=== PATIENT | female | born 1955 | race Caucasian/White ===

== ENCOUNTER 2020-07-28 07:47 | Outpatient (REF) | payer OTHER, SELFPAY ==
[2020-07-28 08:14] LABS: COVID-19 Test Negative (Negative)
== END 2020-07-28 07:48 | disposition home or self-care (01) ==
LOC: HO.EMPCOV 07:47
PROVIDERS: Visit Provider Internal Medicine
DX: Z20.828 Contact with and (suspected) exposure to other viral communicable diseases (principal)
CPT/HCPCS: 87635; C9803

== ENCOUNTER 2020-11-11 11:49 | Emergency (ER) | payer OTHER, SELFPAY ==
[2020-11-11 11:52] VITALS: BP 196/89; PULSE 82; RESP 18; TEMP 36.5; O2SAT 99; BMI 31.8
--- NOTE | 2020-11-11 13:21 | ECG_ITS ---
Test Reason : HIGH BP Blood Pressure : / mmHG Vent. Rate : 064 BPM Atrial Rate : 064 BPM P-R Int : 148 ms QRS Dur : 088 ms QT Int : 412 ms P-R-T Axes : 030 -03 009 degrees QTc Int : 425 ms Normal sinus rhythm Minimal voltage criteria for LVH, may be normal variant Borderline ECG When compared with ECG of 05-AUG-2012 07:53, No significant change was found Referred By: Prabha Lawson Electronically Signed By:ROSENDO RUBY MD
[2020-11-11 13:34] VITALS: BP 170/83; PULSE 64
[2020-11-11 13:37] VITALS: BP 177/90; PULSE 68
[2020-11-11 13:38] VITALS: BP 176/85; PULSE 73
[2020-11-11] MEDS: Meclizine HCl 25 MG TABLET PO (13:49)
[2020-11-11 13:52] LABS: MANUAL DIFF FLAG NO
[2020-11-11 13:54] LABS: Basophils Percent Auto 0.6 % (0-2); Eosinophils Absolute Auto 0.2 X10*3/uL (0.0-0.4); Eosinophils Percent Auto 2.5 % (0-4); Hematocrit 39.7 % (37-47); Hemoglobin 13.2 g/dl (12.0-16.0); Imm Gran Abs Auto 0.02 X10*3/uL (0.00-0.03); Imm Gran Pct Auto 0.3 % (0.0-0.4); Lymphocytes Percent Auto 28.7 % (20-40); Mean Corpuscular HGB Conc 33.2 g/dl (31.0-35.0); Mean Corpuscular Hemoglobin 29.7 pg (27.0-33.0); Mean Corpuscular Volume 89.4 fL (80-98); Mean Platelet Volume 8.9 fL (9.4-12.3); Monocytes Absolute Auto 0.6 X10*3/uL (0.1-1.2); Monocytes Percent Auto 8.1 % (2-11); Neutrophils Absolute Auto 4.1 X10*3/uL (2.0-8.3); Neutrophils Percent Auto 59.8 % (45-73); Platelet Count 222 X10*3/uL (160-400); Red Blood Count 4.44 X10*6/uL (4.20-5.50); Red Cell Distribution Width 12.3 % (11.0-16.0); White Blood Count 6.8 X10*3/uL (4.8-10.8)
[2020-11-11 13:56] LABS: Glucose Urine UA NEG (NEG); Leukocyte Esterase Urine NEG (NEG); Nitrite Urine NEG (NEG); PH 5.5 (5.0-8.0); Urine Blood TRACE (NEG); Urine Ketones NEG (NEG); Urine Protein NEG (NEG-TRACE)
[2020-11-11 14:03] LABS: Appearance Urine CLEAR; Color Urine YELLOW
[2020-11-11] MEDS: 0.9 % Sodium Chloride 1,000 ML 999 ML IVCONT (14:03)
[2020-11-11] MEDS: ondansetron HCL 4 MG/2 ML VIAL IVPUSH (14:03)
[2020-11-11 14:10] LABS: RBC Urine 0-2 /HPF (0); Squamous Epithelial Cell Urine TRACE /LPF; WBC Urine 0-2 /HPF (0-4)
[2020-11-11 14:22] LABS: Alanine Aminotransferase 46 U/L (0-31); Albumin Level 4.2 g/dL (3.5-5.0); Alkaline Phosphatase 49 U/L (39-117); Anion Gap 9 (12-20); Aspartate Amino Transferase 25 U/L (5-31); Bilirubin Direct 0.2 mg/dL (0.0-0.5); Bilirubin Total 0.7 mg/dL (0.0-1.0); Blood Urea Nitrogen 12 mg/dL (9-16); Calcium 9.1 mg/dL (8.4-10.2); Carbon Dioxide 30 mmol/L (22-29); Chloride 105 mmol/L (96-108); Creatinine Clr Calc Pharmacy 79.4; Estimated Glomerular Filt Rate > 60; Glucose Random 92 mg/dL (60-115); Magnesium 1.7 mg/dL (1.6-2.6); Potassium 4.1 mmol/L (3.3-5.1); Sodium 140 mmol/L (135-145); Total Protein 6.4 g/dL (6.5-8.0); Troponin-I High Sensitivity < 3.5 ng/L (<3.5-17.0)
[2020-11-11 14:34] VITALS: BP 173/82; PULSE 66; RESP 16; O2SAT 99
[2020-11-11 14:41] LABS: TSH reflex Free T4 1.35 uIU/mL (0.32-4.0)
[2020-11-11] MEDS: LORazepam 2 MG/ML VIAL 1 MG IVPUSH (14:47)
--- NOTE | 2020-11-11 15:22 | ED_ITS ---
HPI - Dizziness General Chief Complaint: Dizziness Stated Complaint: dizzy,high blood pressure Time Seen by Provider: 11/11/20 13:07 Source: patient Mode of arrival: ambulatory History of Present Illness HPI Narrative: 65-year-old female with no significant past medical history presenting to the ED complaining of intermittent dizziness described as feeling like she is on a boat/not herself over the past week, worsening today with associated palpitations, headache, and increased anxiety/stress from work/daily life. 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 Denies vision change/lost, nausea/vomiting, CP/SOB, abdominal pain, LE edema, numbness, tingling, weakness, paresthesias. Denies taking anticoagulation MD elicited complaint: dizziness and disequilibrium Related Data Previous Rx's Medication Instructions Recorded lorazepam [Ativan] 0.5 mg PO TID PRN #10 tab 11/11/20 meclizine 25 mg PO TID PRN #20 tab 11/11/20 Allergies Allergy/AdvReac Type Severity Reaction Status Date / Time No Known Allergies Allergy Unverified 05/13/20 16:14 Review of Systems Review of Systems: Constitutional: No Fever, No Chills, No Fatigue, No Malaise ENT/Mouth: No Hearing loss, No Ear Pain, No sore throat, No Rhinorrhea, No Swallowing Difficulty Eyes: No Eye Pain, No Vision Changes Cardiovascular: No Chest Pain, No SOB, No Edema, + Palpitations Respiratory: No Cough, No Dyspnea Gastrointestinal: No Nausea, No Vomiting, No Diarrhea, No Constipation, No Abdominal pain Musculoskeletal: No joint pain, No Myalgias, No Joint Swelling Skin: No Skin Lesions, No rash Neuro: No Weakness, No Numbness, No Paresthesias, No Loss of Consciousness, + Dizziness, + Headache Yes all other systems are reviewed and are negative Neurologic: Denies Abnormal speech present [facility] Past Medical History Attestation statement: The following information was validated with the patient. Social History Social History Advance Directives: No Advance Directives Information Provided: No Physical Exam Vital Signs: Vital Signs: Last Vital Signs Temp 97.7 F 11/11/20 11:52 Pulse 66 11/11/20 14:34 Resp 16 11/11/20 14:34 BP 173/82 H 11/11/20 14:34 Pulse Ox 99 03/18/21 14:34 Body Mass Index 31.8 Const: General: cooperative, healthy appearing, comfortable, no acute distress, well developed, alert, awake and Physically active Orien tation/consciousness: patient oriented x3 Limitations: no limitations HENMT: Head: Yes normal to inspection and Yes atraumatic Ears: hearing grossly normal bilaterally General nose exam: Normal external nose present Face and sinus: Yes normal facial exam Eyes: General: appearance normal, both eyes and all related structures Pupils: Equal, round and reactive pupils present EOM: EOMs intact bilaterally Neck: Neck: Yes normal visual inspection and Yes no meningeal signs Resp: Effort & Inspection: normal respiratory effort Cardio: Rate: regular rate GI: Inspection: Yes normal to inspection Palpation (GI): Soft to palpation, nontender, no guarding and not rigid Skin: Rashes: no rashes Wounds: no wounds Neuro: Other: + left-sided horizontal nystagmus General: patient oriented x3, gait normal, tone normal, moves all extremities, no meningeal signs, no focal motor deficits and CN's II-XI intact bilaterally Cranial nerves: Yes Equal, round and reactive pupils present and Yes Bilaterally intact EOM present Cognition (Neuro): normal cognition Speech: No Abnormal speech present Gait exam (Neuro): Normal gait present Motor exam (neuro): 5/5 motor strength present throughout and Pronator motor function not present Coordination: [id number] test normal and Romberg test negative Extrem: General: Yes normal to inspection and Yes no pedal edema Course Course Course Narrative: -patient refusing head CT due to fear of claustrophobia/does not believe it is necessary. Risks discussed, she is competent to make her own decisions -ALT mildly elevated, labs otherwise unremarkable, troponin negative, TSH WNL, UA negative -orthostatic vital signs negative -1530--On re-evaluation patient reports symptomatic improvement, blood pressure has improved to 150s / 80s, once again I requested she obtain head CT which patient is adamantly refusing, this was discussed with Dr. Miranda who also talked to patient. Patient believes symptoms due to increased stress/anxiety. Worrisome signs and symptoms and strict return precautions discussed. Plan to DC patient home with meclizine and Ativan and close PCP/neurology follow-up MDM - Dizziness MDM Narrative Medical decision making narrative: 65-year-old female with no significant past medical history presenting to the ED complaining of intermittent dizziness described as feeling like she is on a boat/not herself over the past week, worsening today with associated palpitations, headache, and increased anxiety/stress from work/daily life. On exam hypertensive, NAD/nontoxic, no focal neuro deficits, left-sided nystagmus noted, ambulating with steady gait. Concern for BPPV vs anxiety reaction vs hypertensive urgency/emergency vs CVA or ICH. Rule out metabolic/infectious etiology. Unlikely meningitis/encephalitis or CVT Plan: EKG, labs, UA, head CT, IVF/symptomatic treatment Medical Records Attestation: I reviewed the patient's medical records. Lab Data Attestation: I reviewed the patient's lab results. Result diagrams: 11/11/20 13:44 11/11/20 13:44 Labs: Lab Results 11/11/20 11/11/20 11/11/20 Range/Units 13:44 13:44 13:44 WBC 6.8 (4.8-10.8) X10*3/uL RBC 4.44 (4.20-5.50) X10*6/uL Hgb 13.2 (12.0-16.0) g/dl Hct 39.7 (37-47) % MCV 89.4 (80-98) fL MCH 29.7 (27.0-33.0) pg MCHC 33.2 (31.0-35.0) g/dl RDW 12.3 (11.0-16.0) % Plt Count 222 (160-400) X10*3/uL MPV 8.9 L (9.4-12.3) fL Immature Gran % (Auto) 0.3 (0.0-0.4) % Neut % (Auto) 59.8 (45-73) % Lymph % (Auto) 28.7 (20-40) % Ross % (Auto) 8.1 (2-11) % Eos % (Auto) 2.5 (0-4) % Baso % (Auto) 0.6 (0-2) % Lymph # (Auto) 2.0 (1.2-4.9) X10*3/uL Ross # (Auto) 0.6 (0.1-1.2) X10*3/uL Eos # (Auto) 0.2 (0.0-0.4) X10*3/uL Baso # (Auto) 0.0 (0.0-0.2) X10*3/uL Abs Immat Gran (auto) 0.02 (0.00-0.03) X10*3/uL Absolute Neuts (auto) 4.1 (2.0-8.3) X10*3/uL Absolute Nucleated RBC 0.000 (0.0-0.012) X10*3/uL Nucleated RBC % (auto) 0.0 (0.0-0.2) /100WBC Hold Blue Top Sodium 140 (135-145) mmol/L Potassium 4.1 (3.3-5.1) mmol/L Chloride 105 (96-108) mmol/L Carbon Dioxide 30 H (22-29) mmol/L Anion Gap 9 L (12-20) BUN 12 (9-16) mg/dL Creatinine 0.75 (0.5-1.4) mg/dL Estim Creat Clear Calc 79.4 Estimated GFR > 60 Random Glucose 92 (60-115) mg/dL Calcium 9.1 (8.4-10.2) mg/dL Magnesium 1.7 (1.6-2.6) mg/dL Total Bilirubin 0.7 (0.0-1.0) mg/dL Direct Bilirubin 0.2 (0.0-0.5) mg/dL AST 25 (5-31) U/L ALT 46 H (0-31) U/L Alkaline Phosphatase 49 (39-117) U/L Troponin I High Sens < 3.5 (<3.5-17.0) ng/L Total Protein 6.4 L (6.5-8.0) g/dL Albumin 4.2 (3.5-5.0) g/dL TSH 1.35 (0.32-4.0) uIU/mL Urine Color Urine Appearance Urine pH (5.0-8.0) Ur Specific Elmer (1.005-1.025) Urine Protein (NEG-TRACE) MG/DL Urine Glucose (UA) (NEG) MG/DL Urine Ketones (NEG) MG/DL Urine Blood (NEG) Urine Nitrite (NEG) Ur Leukocyte Esterase (NEG) Urine RBC (0) /HPF Urine WBC (0-4) /HPF Ur Squamous Epith Cells /LPF Urine Bacteria /LPF 11/11/20 11/11/20 Range/Units 13:44 13:44 WBC (4.8-10.8) X10*3/uL RBC (4.20-5.50) X10*6/uL Hgb (12.0-16.0) g/dl Hct (37-47) % MCV (80-98) fL MCH (27.0-33.0) pg MCHC (31.0-35.0) g/dl RDW (11.0-16.0) % Plt Count (160-400) X10*3/uL MPV (9.4-12.3) fL Immature Gran % (Auto) (0.0-0.4) % Neut % (Auto) (45-73) % Lymph % (Auto) (20-40) % Ross % (Auto) (2-11) % Eos % (Auto) (0-4) % Baso % (Auto) (0-2) % Lymph # (Auto) (1.2-4.9) X10*3/uL Ross # (Auto) (0.1-1.2) X10*3/uL Eos # (Auto) (0.0-0.4) X10*3/uL Baso # (Auto) (0.0-0.2) X10*3/uL Abs Immat Gran (auto) (0.00-0.03) X10*3/uL Absolute Neuts (auto) (2.0-8.3) X10*3/uL Absolute Nucleated RBC (0.0-0.012) X10*3/uL Nucleated RBC % (auto) (0.0-0.2) /100WBC Hold Blue Top SEE NOTE Sodium (135-145) mmol/L Potassium (3.3-5.1) mmol/L Chloride (96-108) mmol/L Carbon Dioxide (22-29) mmol/L Anion Gap (12-20) BUN (9-16) mg/dL Creatinine (0.5-1.4) mg/dL Estim Creat Clear Calc Estimated GFR Random Glucose (60-115) mg/dL Calcium (8.4-10.2) mg/dL Magnesium (1.6-2.6) mg/dL Total Bilirubin (0.0-1.0) mg/dL Direct Bilirubin (0.0-0.5) mg/dL AST (5-31) U/L ALT (0-31) U/L Alkaline Phosphatase (39-117) U/L Troponin I High Sens (<3.5-17.0) ng/L Total Protein (6.5-8.0) g/dL Albumin (3.5-5.0) g/dL TSH (0.32-4.0) uIU/mL Urine Color YELLOW Urine Appearance CLEAR Urine pH 5.5 (5.0-8.0) Ur Specific Elmer 1.020 (1.005-1.025) Urine Protein NEG (NEG-TRACE) MG/DL Urine Glucose (UA) NEG (NEG) MG/DL Urine Ketones NEG (NEG) MG/DL Urine Blood TRACE (NEG) Urine Nitrite NEG (NEG) Ur Leukocyte Esterase NEG (NEG) Urine RBC 0-2 (0) /HPF Urine WBC 0-2 (0-4) /HPF Ur Squamous Epith Cells TRACE /LPF Urine Bacteria NONE /LPF Discharge Plan Discharge Clinical Impression: Dizziness Patient Disposition: Home, Self-Care Instructions: Dizziness (ED) Additional Instructions: Your blood work was reassuring today in the ED. however you refused a head CT, it is still possible that you could have had or be having a stroke Meclizine will help with nausea and dizziness. Ativan will help with anxiety, take both as prescribed/as needed It is very important that he follow up with her primary care doctor as well as neurology If her symptoms persist or worsen, you have constant worsening headache, dizziness, any visual change/loss, weakness, numbness, or nausea/vomiting return to the ED Prescriptions: New meclizine 25 mg tablet 25 mg PO TID PRN (Reason: dizziness) Qty: 20 RF: 0 lorazepam [Ativan] 0.5 mg tablet 0.5 mg PO TID PRN (Reason: anxiety) Qty: 10 RF: 0 Referrals: Merlene Ron MD [Physician] - 1 week Physician,None [Primary Care Provider] - 2 days
--- NOTE | 2020-11-11 15:28 | PC.NURSE ---
pt reports dizziness has resolved, feeling calmer. PA in to discuss plan of care. BP trending down since arrival.
[2020-11-11 16:38] VITALS: BP 147/71
== END 2020-11-11 16:57 | disposition home or self-care (01) ==
PROVIDERS: Physician Assistant; Emergency Provider Emergency Medicine Emergency Medical Services
DX: R42 Dizziness and giddiness (principal); I10 Essential (primary) hypertension; Z79.899 Other long term (current) drug therapy
CPT/HCPCS: 36415; 80048; 80076; 81001; 83735; 84443; 84484; 85025; 93005; 96365; 96375; 99284; J2060; J2405

== ENCOUNTER 2021-07-29 10:00 | Outpatient (RCR) | payer OTHER, SELFPAY | END 2021-07-29 10:55 | disposition home or self-care (01) | LOC: HO.PT 10:00 | PROVIDERS: Visit Provider Physician Assistant Medical | DX: M46.1 Sacroiliitis, not elsewhere classified (principal) | CPT/HCPCS: 97033; 97110; 97112; 97140; 97162; 97530 ==

== ENCOUNTER 2021-11-08 14:24 | Outpatient (REF) | payer OTHER, SELFPAY ==
--- NOTE | ~2021-11-08 | MM_ITS ---
EXAMINATION: MM SCREENING DIGITAL BREAST TOMOSYNTHESIS, BILATERAL CLINICAL INFORMATION: Screening. Asymptomatic. The lifetime risk of breast cancer based on the Tyrer-Cuzick Model is 7%. COMPARISON: Mammography: 10/09/2018, 11/05/2015 TECHNIQUE: Digital breast tomosynthesis is performed in both the craniocaudal and mediolateral oblique views along with computer-aided detection (CAD). Synthesized 2D images are generated from the tomosynthesis. FINDINGS: There are scattered areas of fibroglandular density (ACR BI-RADS breast composition Category b). There are no significant masses, abnormal calcifications, or other abnormalities. There are numerous fine punctate calcifications again seen in each breast similar in number and distribution to prior studies. The axilla and skin contours are unremarkable. There are no significant changes. MM/MM tomosynthesis screening BI IMPRESSION: No mammographic evidence of malignancy. ASSESSMENT: BI-RADS 2: Benign RECOMMENDATION: Routine annual mammography screening. This patient's information was entered into a reminder system with a target due date for their next mammogram.
== END 2021-11-08 14:25 | disposition home or self-care (01) ==
LOC: HO.MAMMO 14:24
PROVIDERS: PCP Registered Nurse; Visit Provider Registered Nurse
DX: Z12.31 Encounter for screening mammogram for malignant neoplasm of breast (principal)
CPT/HCPCS: 77063; 77067

== ENCOUNTER 2023-05-19 07:25 | Outpatient (REF) | payer OTHER, SELFPAY ==
[2023-05-19 08:01] LABS: MANUAL DIFF FLAG NO
[2023-05-19 08:29] LABS: Basophils Absolute Auto 0.1 X10*3/uL (0.0-0.2); Basophils Percent Auto 0.7 % (0-2); Eosinophils Absolute Auto 0.2 X10*3/uL (0.0-0.4); Eosinophils Percent Auto 2.1 % (0-4); Hematocrit 41.9 % (37.0-47.0); Hemoglobin 13.9 g/dl (12.0-16.0); Imm Gran Abs Auto 0.01 X10*3/uL (0.00-0.03); Imm Gran Pct Auto 0.1 % (0.0-0.4); Lymphocytes Absolute Auto 2.5 X10*3/uL (1.2-4.9); Lymphocytes Percent Auto 35.8 % (20-40); Mean Corpuscular HGB Conc 33.2 g/dl (31.0-35.0); Mean Corpuscular Hemoglobin 29.6 pg (27.0-33.0); Mean Corpuscular Volume 89.1 fL (80.0-98.0); Monocytes Absolute Auto 0.6 X10*3/uL (0.1-1.2); Monocytes Percent Auto 8.7 % (2-11); Neutrophils Absolute Auto 3.7 x10*3/uL (2.0-8.3); Neutrophils Percent Auto 52.6 % (45-73); Platelet Count 255 X10*3/uL (160-400); Red Cell Distribution Width 12.4 % (11.0-16.0)
[2023-05-19 09:14] LABS: Alanine Aminotransferase 22 U/L (0-31); Albumin Level 4.1 g/dL (3.5-5.0); Alkaline Phosphatase 42 U/L (39-117); Anion Gap 17 (12-20); Aspartate Amino Transferase 25 U/L (5-31); Bilirubin Total 0.4 mg/dL (0.0-1.0); Blood Urea Nitrogen 17 mg/dL (9-16); Calcium 9.7 mg/dL (8.4-10.2); Carbon Dioxide 23 mmol/L (22-29); Chloride 106 mmol/L (96-108); Cholesterol 227 mg/dL (<200); Estimated Glomerular Filt Rate > 60; Glucose Random 97 mg/dL (60-115); HDL Cholesterol 58 mg/dL (>40); LDL Cholesterol Calculated 153 mg/dL (<100); Potassium 4.7 mmol/L (3.3-5.1); Sodium 141 mmol/L (135-145); Total Protein 7.1 g/dL (6.5-8.0); Triglycerides 82 mg/dL (<150)
[2023-05-19 09:23] LABS: Vitamin D 25-OH Total 45.2 ng/mL (>30)
== END 2023-05-19 07:26 | disposition home or self-care (01) ==
LOC: HO.LAB 07:25
PROVIDERS: PCP Physician Assistant Medical; Visit Provider Physician Assistant Medical
DX: I10 Essential (primary) hypertension (principal); E55.9 Vitamin D deficiency, unspecified; Z13.6 Encounter for screening for cardiovascular disorders
CPT/HCPCS: 36415; 80053; 80061; 82306; 85025

== ENCOUNTER 2023-06-20 13:54 | Outpatient (REF) | payer OTHER, SELFPAY ==
--- NOTE | ~2023-06-20 | MM_ITS ---
EXAMINATION: BONE DENSITOMETRY CLINICAL INDICATION: Menopausal. COMPARISON: This is the patient's baseline examination. TECHNIQUE: Using a [employer] DXA System (software version: 13.1) manufactured by [employer], dual-energy x-ray absorptiometry was performed of the lumbar spine and left hip. The images are of good technical quality. Summary results are attached. FINDINGS: LEFT FEMUR, NECK: BMD 0.959 g/cm2, Z-score 0.7, T-score -0.6, normal. LEFT FEMUR, TOTAL: BMD 1.119 g/cm2, Z-score 1.9, T-score 0.9, normal. AP SPINE L1-L4: BMD 1.128 g/cm2, Z-score 0.8, T-score -0.4, normal. IDENTIFIED RISK FACTORS: Menopause. HISTORY OF FRACTURE: None listed. MEDICATIONS: None listed. MM/XR DEXA axial skeleton IMPRESSION: 1. DIAGNOSIS: Normal bone density based on the lowest T-score value of -0.6 in the femoral neck applying World Health Organization criteria. 2. 10-YEAR FRACTURE RISK PREDICTION, FRAX: According to the guidelines, FRAX calculation should only be performed on patients in the osteopenia bone density category. Therefore, FRAX was not performed on this patient. 3. Treatment Recommendations: NOF guidelines recommend consideration for treatment in postmenopausal women and men age 50 and older presenting with the following: -A hip or vertebral (clinical or morphometric) fracture. -T-score less than or equal to -2.5 at the femoral neck or spine after appropriate evaluation to exclude secondary causes. -Low bone mass at the hip or spine and a 10-year fracture probability by FRAX of greater than or equal to 3% for hip fracture or greater than or equal to 20% for major osteoporotic fracture based on the [place] adapted WHO algorithm. 4. Other Recommendations: All treatment decisions require clinical judgment and consideration of individual patient factors, including patient preferences, comorbidities, previous drug use, risk factors not captured in the FRAX model (e.g. frailty, falls, vitamin D deficiency, increased bone turnover, interval significant decline in bone density) and possible under or overestimation of fracture risk by FRAX. FUTURE SCAN RECOMMENDATION: People with diagnosed cases of osteoporosis or at high risk for fracture should have regular bone mineral density tests. For patients eligible for Medicare, routine testing is allowed once every 2 years. The testing frequency can be increased to one year for patients who have rapidly progressing disease, those who are receiving or discontinuing medical therapy to restore bone mass, or have additional risk factors.
--- NOTE | ~2023-06-20 | MM_ITS ---
EXAMINATION: MM SCREENING DIGITAL BREAST TOMOSYNTHESIS, BILATERAL CLINICAL INFORMATION: Screening. Asymptomatic. COMPARISON: Mammography: This study is compared with prior exams dating back to 2016. TECHNIQUE: Digital breast tomosynthesis is performed in both the craniocaudal and mediolateral oblique views along with computer-aided detection (CAD). Synthesized 2D images are generated from the tomosynthesis. FINDINGS: There are scattered areas of fibroglandular density (ACR BI-RADS breast composition Category b). There are no significant masses, abnormal calcifications, or other abnormalities. MM/MM tomosynthesis screening BI IMPRESSION: No mammographic evidence of malignancy. ASSESSMENT: BI-RADS BI-RADS 1 - Negative RECOMMENDATION: Routine annual mammography screening. 1 year F/U This examination should not preclude the clinical evaluation of a suspicious palpable abnormality. This patient's information was entered into a reminder system with a target due date for their next mammogram.
== END 2023-06-20 13:55 | disposition home or self-care (01) ==
LOC: HO.MAMMO 13:54
PROVIDERS: PCP Physician Assistant Medical; Visit Provider Physician Assistant Medical
DX: Z12.31 Encounter for screening mammogram for malignant neoplasm of breast (principal); Z13.820 Encounter for screening for osteoporosis; Z78.0 Asymptomatic menopausal state
CPT/HCPCS: 77063; 77067; 77080

== ENCOUNTER → 2023-06-20 14:30 | Outpatient (BNV) | payer OTHER, SELFPAY | PROVIDERS: PCP Physician Assistant Medical; Visit Provider Radiology Diagnostic Radiology | DX: Z12.31 Encounter for screening mammogram for malignant neoplasm of breast (principal) | CPT/HCPCS: 77063; 77067 ==

== ENCOUNTER 2023-12-18 13:30 | Outpatient (AMB) | payer OTHER, SELFPAY ==
--- NOTE | 2023-12-18 14:05 | HO.SPINEOV ---
Intake Visit Reasons: neck pain Intake Note: Ms. Santos is here today c/o neck and back pain. MRI done at [facility]. 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 She has had issues with her low back for years, but about 5 months ago woke up in the morning and had severe pain along the backside of her neck in the paraspinal region radiating up to her head. When it 1st started, she was hoping it would just go away on its own. She trialed gabapentin but did not like how it made her feel. She tried to avoid the [id number] medications as she does not like to take pills. She continued to try to wait this out and see if it would go away but it did not, she ultimately underwent an MRI showing degenerative disc disease and came in today to see us. She does not have a radiculopathy as a main feature of her presentation. She did 1 time when she bent her head looking up to get a wine glass off a counter experience some numbness of her arms but other than that it is generally just neck pain. She will feel the neck pain at night when she is trying to sleep. She is here today for evaluation the setting of the MRI showing degenerative discs. PMH: T is otherwise reasonably healthy, history of hypertension, anxiety, GERD, left knee meniscus surgery Social hx: She has not smoke, does drink occasionally, does not use marijuana Medications: Amlodipine, duloxetine, famotidine Allergies: None Physical exam: She is awake alert oriented no acute distress, she has good strength of bilateral upper and lower extremities, reflexes are normal at both the biceps and triceps and patella. Imaging review: Cervical MRI and lumbar MRI done at [facility] reviewed. There is also cervical and lumbar x-rays done at [facility] as well. These show moderate degenerative discs at C5-6 and C6-7. There is no spinal cord compression. There is some mild foraminal narrowing at both these levels. She also has moderate to severe disc degeneration at L5-S1 in her lumbar spine. No other significant pathological findings in the lumbar area. Impression: 68-year-old female presents for evaluation of 5 months of posterior neck pain along with pain at the back of her head which started abruptly. She has no radicular features. To this point she has not trialed any conservative treatment other than just tincture of time. I would like to send her to physical therapy just as a matter of formality and see if they can help work this out a little bit. We also discussed the option of pain management for trigger point injections to help with some of the tension in the the neck muscles but at this time she deferred that. We also reviewed the fact that [id number] medications can be useful in these kind of situations. She can not take NSAIDs because of reflex issues, but I encouraged her to take Tylenol 3 times a day. I would like to see her back in 6 weeks and we can re-evaluate. With regard to her lumbar spine, she does have significant disc degeneration at L5-S1, but at this time her neck seems to be the primary issue so we can focus on that for now. Thank you for allowing us to care for your patient. The total time spent with this visit with this patient was 45 minutes reviewing history, physical exam, cervical and lumbar imaging review, and implementation of treatment plan or further diagnostic testing Hernandez Sosa MD,PhD [facility] Orders: Orders PT Evaluation and Treatment Today M50.90 - Cervical disc disorder, unspecified, unspecified cervical region Coding Level of Care Code New Pt Level 4 (70276) Diagnoses Cervical disc disorder M50.90
== END 2023-12-18 14:42 | disposition home or self-care (01) ==
PROVIDERS: PCP Physician Assistant Medical; Visit Provider Physician Assistant
DX: M50.90 Cervical disc disorder, unspecified, unspecified cervical region (principal)
CPT/HCPCS: 99204

== ENCOUNTER → 2023-12-18 13:30 | Outpatient (BNVA) | payer OTHER, SELFPAY | PROVIDERS: PCP Physician Assistant Medical; Visit Provider Physician Assistant ==

== ENCOUNTER 2024-01-31 13:38 | Outpatient (REF) | payer OTHER, SELFPAY ==
--- NOTE | ~2024-01-31 | XR_ITS ---
EXAMINATION: XR LUMBOSACRAL SPINE WITH FLEXION AND EXTENSION VIEWS CLINICAL INFORMATION: Low back pain, unspecified COMPARISON: None available. TECHNIQUE: Standing AP, lateral and lateral flexion and extension views of lumbar spine were obtained FINDINGS: There 5 nonrib-bearing lumbar-type vertebral bodies. The height of vertebral bodies is well-maintained. There is grade 1 anterolisthesis of L4 with respect to L5. This increases with flexion and slightly decreases with extension. There is marked disc space narrowing at L5-S1. There is multilevel degenerative facet joint disease. XR/XR lumbar spine 4V min IMPRESSION: 1. Grade 1 anterolisthesis of L4 with respect to L5, as discussed above. 2. Marked degenerative disc disease at L5-S1. 3. Multilevel degenerative facet joint disease.
== END 2024-01-31 13:39 | disposition home or self-care (01) ==
LOC: HO.HOSX 13:38
PROVIDERS: PCP Physician Assistant Medical; Visit Provider Physician Assistant
DX: M51.37 Other intervertebral disc degeneration, lumbosacral region (principal); M47.819 Spondylosis without myelopathy or radiculopathy, site unspecified
CPT/HCPCS: 72110

== ENCOUNTER 2024-01-31 13:38 | Outpatient (AMB) | payer OTHER, SELFPAY ==
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
== END 2024-01-31 14:37 | disposition home or self-care (01) ==
PROVIDERS: PCP Physician Assistant Medical; Visit Provider Physician Assistant
DX: M54.50 Low back pain, unspecified (principal)
CPT/HCPCS: 99213

== ENCOUNTER 2024-02-12 10:00 | Outpatient (RCR) | payer OTHER, SELFPAY ==
--- NOTE | 2024-01-01 07:56 | MHC.PT.EP ---
[facility] [place] Office [place] [facility] [place] [facility] [address] [place] Gra[place] [address] [phone] F: [phone] F: [phone] F: [phone] F: [phone] Physical Therapy Plan of Care Date of Evaluation: 12/28/23 Date of Surgery: N/A Diagnosis: cervical neck pain (RL) Assessment: pt is a 68 y/o female presenting to physical therapy w/ referring diagnosis of cervical neck pain. Impairments include pain, decreased range of motion, decreased strength, impaired functional mobility, impaired postural awareness, and altered ambulation mechanics. pt is a good candidate for skilled PT due to age, potential remediation of impairments, typical disease/condition progression and prognosis, comorbidities, and motivation. pt would benefit from skilled PT intervention to provide a tailored strengthening and stretching exercise program, functional training, gait training, postural re-training, neuromuscular re-education, modalities as needed for pain, equipment safety demonstration. Frequency and Duration: The patient will be seen 2x/wk for 6 wks Short Term Goals: pt will be I w/ HEP to promote self-management of condition. pt will demo proper sitting posture w/ lumbar roll to promote neutral spine w/ seated ADLs. Experimental Worker Goals: pt will report a statistically significant improvement in self-reported outcome measure, NDI, to promote return to PLOF. pt will improve B cervical rotation AROM by at least 10 degrees to promote ease in head turns w/ driving. Treatment Plan: Modalities to reduce pain, spasms and effusion. Manual therapy to restore motion and function. Therapeutic exercise to improve strength and flexibility. Neuromuscular re-education for posture and balance. Therapeutic activities to return to functional activities of daily living. Electronically signed by: Edelmira Calabrese PT, DPT Please sign and return to therapist. Thank you for your referral.
--- NOTE | 2024-03-17 09:40 | MHC.PT.DC ---
[facility] [place] Office [place] Office [place] Office [address] [place] Graff [address] [facility] [phone] F: [phone] F: [phone] F: [phone] F: [phone] Physical Therapy Discharge Report Diagnosis: cervical neck pain (RL) Date of Surgery: N/A Date of Evaluation: 12/28/23 Date of Discharge: 03/17/24 Treatments to Date: 10 Cancellations to Date: 1 No Shows to Date: 0 Discharge Status: Improved Function Independent with HEP Discharge Summary: The patient overall is feeling better. At this time, she feels she will continue with non-surgical option and trying to avoid medication/injections. 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 She feels she is independent with the pain management strategies she was taught here. I will keep her chart open for 3 weeks. If I do not hear from here in that time I will discharge her chart. Electronically signed by: Edelmira Calabrese PT, DPT Please sign and return to therapist. Thank you for your referral.
== END 2024-03-17 09:40 | disposition home or self-care (01) ==
LOC: HO.PT 10:00
PROVIDERS: PCP Physician Assistant Medical; Visit Provider Physician Assistant
DX: M50.90 Cervical disc disorder, unspecified, unspecified cervical region (principal)
CPT/HCPCS: 97012; 97110; 97112; 97140; 97162

== ENCOUNTER 2024-02-18 10:13 | Outpatient (AMB) | payer OTHER, SELFPAY ==
--- NOTE | 2024-02-08 08:31 | A.OFFPC_ITS ---
Intake Visit Reasons: Transfer from [facility] Allergies No Known Allergies Allergy (Verified 12/18/23 14:06) [facility] Medical History (Updated 02/08/24 @ 08:33 by Dena Fonseca SIDE DOOR MAN) Vitamin D deficiency Obesity, Class I, BMI 30-34.9 Lumbar spondylosis Headache Arthritis Anxiety Left otitis media Essential hypertension Cervical disc disorder Lumbago Coding
--- NOTE | 2024-02-08 08:31 | MHC.PC.OV ---
Intake Visit Reasons: Transfer from [facility] Allergies No Known Allergies Allergy (Verified 12/18/23 14:06) [facility] Medical History (Updated 02/08/24 @ 08:33 by Dena Fonseca TRANSFORMER ASSEMBLER) Vitamin D deficiency Obesity, Class I, BMI 30-34.9 Lumbar spondylosis Headache Arthritis Anxiety Left otitis media Essential hypertension Cervical disc disorder Lumbago Coding
--- NOTE | 2024-02-18 10:17 | MHC.PC.OV ---
Vital Signs 02/18/24 10:28 Height 5 ft 4 in Weight 178 lb 8 oz BMI 30.6 BP 134/78 Blood Pressure Location Lt brachial Position Sitting Pulse 71 Pulse Source Pulse Oximeter Temp 97.8 F Temp Source Oral Pulse Oximetry (%) 96 Oxygen Delivery Method Room Air Intake Visit Reasons: Transfer from [facility] Intake Note: pt here tranfering from [facility]. Business Unit Director Required: No Is last menstrual period known: No Allergies No Known Allergies Allergy (Verified 02/18/24 10:21) Tobacco use date assessed: 02/18/24 Fall risk assessment: 1 Fall in past year Last assessed Fall Risk: 02/18/24 Dental Screening Dental Screen Date: 02/18/24 Did you have a dental visit in the last 12 months?: Yes Did you have a dental problem in the last 6 months where you did not have access to dental care?: No Was dental information given to patient?: Patient has dentist HPI HPI Comments History of Present Illness Details This is a 68-year-old female with a past medical history of GERD, degenerative disc disease of the lumbar and cervical spine and hypertension presenting to transfer from [facility] primary care. Hypertension-taking amlodipine 2.5 mg daily. Her systolic readings have not been at goal during the past few months. She wants to know if she should increase the dose of her medication. She thinks stress may contribute to blood pressure. GERD-she takes the [employer] brand of omeprazole. She denies symptoms. Degenerative disc disease-she was seen at the [facility] spine clinic. She recently completed a 6 week course of physical therapy. She plans to maintain her progress with massage therapy, home exercises and alternating with heat and cold compresses. She is on duloxetine 30 mg daily. She has muscle relaxers at home that she uses occasionally. She recently fell directly on her tailbone when she was on her boat fishing. She discussed this with the spine clinic. She had an x-ray of her lumbar spine completed which was stable. She was made aware this is not the preferred study for evaluation of fractures. The patient expresses that even if she has a fracture she knows there is nothing surgically that could be done so she is not interested in advanced imaging at this time. It is slowly getting better. She is applying ice, taking ibuprofen as needed and using a donut cushion. She did Cologuard in 2023. Mammogram UTD. [facility] Medical History (Updated 02/18/24 @ 11:21 by TUCKER Fan) GERD (gastroesophageal reflux disease) Vitamin D deficiency Obesity, Class I, BMI 30-34.9 Lumbar spondylosis Headache Arthritis Anxiety Left otitis media Essential hypertension Cervical disc disorder Lumbago Family History (Updated 02/18/24 @ 10:27 by Clare Lawson) Other Alcohol abuse FH: mental illness Substance abuse Social History Housing: House Patient Tobacco Use Status: Never used Tobacco e-Cigarette/Vaping Use: Never Used Second Hand Smoke Exposure: No service: No Current occupational status: employed 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 1. Little interest or pleasure in doing things: not at all 2. Feeling down, depressed, or hopeless: not at all 3. Trouble falling or staying asleep, or sleeping too much: several days 4. Feeling tired or having little energy: not at all 5. Poor appetite or overeating: not at all 6. Feeling bad about yourself - or that you are a failure or have let yourself or your family down: not at all 7. Trouble concentrating on things, such as reading the newspaper or watching television: not at all 8. Moving or speaking so slowly that other people could have noticed. Or the opposite - being so fidgety or restless that you have been moving around a lot more than usual: not at all 9. Thoughts that you would be better off or of hurting yourself in some way: not at all Total score: 1 67443 - PHQ-9 Billing: Yes Source: Developed by Drs. David Kruger, Anastasia Leo, Daquan Arteaga and colleagues, with an educational eben from [employer]. Thrive Questionnaire Date Thrive assessed: 02/18/24 What is your living situation today?: I have a steady place to live Within the past 12 months, did the food you bought not last and you didn't have the money to get more?: Never true Within the past 12 months, did you worry whether your food would run out before you got money to buy more?: Never true Do you have trouble paying for medicines?: No Do you have trouble getting transportation to medical appointments?: No Do you have trouble paying your heating and electricity bill?: No Do you have trouble taking care of your child, family member or friend?: No Do you have trouble with day-to-day activities such as bathing, preparing meals, shopping, managing finances, etc.?: No Are you interested in more education?: No Please select the resources that you would like help with: None Currently or been in a relationship where the following occur: no concerns reported THRIVE Score: 0 AUDIT C Alcohol Use Questionnaire (AUDIT-C) 1. How often do you have a drink containing alcohol?: Monthly or less 2. How many drinks containing alcohol do you have on a typical day when you are drinking?: 1 or 2 3. How often do you have six or more drinks on one occasion?: Never Total Score: 1 WILLIAMS-7 AMB Questionnaire WILLIAMS-7 Date WILLIAMS - 7 assessed: 02/18/24 Feeling nervous, anxious, or on edge: 1 = Several days Not being able to stop or control worryin = Not at all Worrying too much about different things: 0 = Not at all Trouble relaxin = Several days Being so restless that it is hard to sit still: 0 = Not at all Becoming easily annoyed or irritable: 0 = Not at all Feeling afraid as if something awful might happen: 0 = Not at all Total WILLIAMS-7 score (0-4 normal; 5-9 mild; 10-14 moderate; 15-21 severe): 2 Source: Developed by Drs. David Kruger, Anastasia Leo, Daquan Arteaga and colleagues, with an educational eben from [employer]. WILLIAMS-7 Assessment Billing WILLIAMS-7 Assessment Tool: WILLIAMS-7 Assessment 31959 Review of Systems Const Details: Constitutional: No fevers or chills. Cardiovascular: No chest pain, chest pressure or chest discomfort. No palpitations or pedal edema. Neurologic: No unilateral weakness, ataxia, numbness or tingling in the extremities. Musculoskeletal: see HPI Physical exam (Primary Care) Vital Signs: Last Vital Signs Temp 97.8 F 02/18/24 10:28 Pulse 71 06/24/24 10:28 BP 134/78 02/18/24 10:28 Pulse Ox 96 02/18/24 10:28 Oxygen Delivery Method Room Air 02/18/24 10:28 BMI result Body Mass Index 30.6 Tobacco/Smoking Status: Tobacco use Status Tobacco use date assessed 02/18/24 02/18/24 10:34 Patient Tobacco Use Status Never used Tobacco 02/18/24 10:34 e-Cigarette/Vaping Use Never Used 02/18/24 10:34 PHQ-9: PHQ-9 Score PHQ-9: Total score 1 02/18/24 10:34 Thrive Assessment: Date of Thrive Assessment Date Thrive assessed 02/18/24 02/18/24 10:34 Currently or been in a relationship where the following occur: no concerns reported Const Other: Constitutional: Alert, in no distress. Respiratory: Clear to auscultation. Cardiovascular: S1 S2 regular. No murmurs. Gastrointestinal: Abdomen soft, non-tender, non-distended. Normal bowel sounds. No palpable masses. Extremities: Warm and well perfused. No clubbing, cyanosis or edema. Assessment and Plan Assessment & Plan (1) Lumbago: Code(s): M54.50 - Low back pain, unspecified Qualifiers: Chronicity: chronic Back pain laterality: bilateral Sciatica presence: without sciatica Qualified Code(s): M54.50 - Low back pain, unspecified; G89.29 - Other chronic pain (2) Cervical disc disorder: Code(s): M50.90 - Cervical disc disorder, unspecified, unspecified cervical region (3) Essential hypertension: Code(s): I10 - Essential (primary) hypertension (4) GERD (gastroesophageal reflux disease): Code(s): K21.9 - Gastro-esophageal reflux disease without esophagitis Qualifiers: Esophagitis presence: without esophagitis Qualified Code(s): K21.9 - Gastro-esophageal reflux disease without esophagitis (5) Coccygeal pain, acute: Code(s): M53.3 - Sacrococcygeal disorders, not elsewhere classified Plan The patient will increase her dose of amlodipine to 5 mg daily. Declined follow up and will send readings via the patient portal in a few weeks. She will monitor for side effects. She does not have further follow up with the spine Clinic scheduled. She completed physical therapy. She will continue Cymbalta 30 mg daily. She is going to continue massage therapy and home exercises. She brought copies of her MRI reports which are sent to scanning. She declines further imaging for coccygeal injury/pain at this time. If symptoms worsen she will contact the office or go to the ER. She will continue omeprazole for GERD. Avoid triggers. Coding Level of Care Code Est Pt Level 4 (12096) Complex EM visit Add On G2211 Diagnoses Chronic bilateral low back pain without sciatica M54.50; G89.29 Chronicity: chronic Back pain laterality: bilateral Sciatica presence: without sciatica Cervical disc disorder M50.90 Essential hypertension I10 Gastroesophageal reflux disease without esophagitis K21.9 Esophagitis presence: without esophagitis Coccygeal pain, acute M53.3 Additional Codes WILLIAMS-7 Assessment Billing - WILLIAMS-7 Assessment Tool: WILLIAMS-7 Assessment 20035 ([id number])
[2024-02-18 10:28] VITALS: BP 134/78; PULSE 71; TEMP 36.6; O2SAT 96; BMI 30.6
== END 2024-02-18 11:06 | disposition home or self-care (01) ==
PROVIDERS: PCP Physician Assistant Medical; Visit Provider Physician Assistant Medical
DX: I10 Essential (primary) hypertension (principal); M54.50 Low back pain, unspecified; G89.29 Other chronic pain; M50.90 Cervical disc disorder, unspecified, unspecified cervical region; K21.9 Gastro-esophageal reflux disease without esophagitis; M53.3 Sacrococcygeal disorders, not elsewhere classified
CPT/HCPCS: 99214; G2211

== ENCOUNTER 2024-05-23 14:14 | Outpatient (REF) | payer OTHER, SELFPAY ==
--- NOTE | ~2024-05-23 | XR_ITS ---
EXAMINATION: XR SACRUM AND COCCYX CLINICAL INFORMATION: reason for Exam T14.90XA - Injury, unspecified, initial encounter COMPARISON: X-ray lumbosacral spine January 2024 TECHNIQUE: 2 views of the sacrum and 2 views of the coccyx were obtained. FINDINGS: There are no fractures. No bone, joint or soft tissue abnormality is demonstrated. Incidental note made of mild spondylosis of of the partially visualized lumbosacral spine unchanged compared with January 2024. XR/XR sacrum coccyx min 2V IMPRESSION: Unremarkable examination. Electronically signed by: Frankie Schroeder MD 05/24/2024 11:52 AM EDT
== END 2024-05-23 14:15 | disposition home or self-care (01) ==
LOC: HO.XRAY 14:14
PROVIDERS: PCP Physician Assistant Medical; Visit Provider Physician Assistant Medical
DX: S39.92XD Unspecified injury of lower back, subsequent encounter (principal)
CPT/HCPCS: 72220

== ENCOUNTER 2024-06-09 09:51 | Outpatient (REF) | payer OTHER, SELFPAY ==
--- NOTE | ~2024-06-09 | MR_ITS ---
EXAMINATION: MRI SACRUM WITHOUT CONTRAST CLINICAL INFORMATION: Injury. Patient reports fall 5 months prior. COMPARISON: X-ray of the sacrum and coccyx April 2024. X-ray lumbosacral spine January 2024. MRI lumbosacral spine May 2021. TECHNIQUE: MRI of the sacrum is performed without contrast on a high field MRI scanner. FINDINGS: BONES/JOINTS: Sacrum and coccyx: Normal. No fracture. No marrow abnormality. Remaining bone and joints in the pelvis normal. Incidental note made of moderate degenerative disc changes with disc bulging at the L5-S1 level and reactive endplate changes. Additional bulging of the L3-L4 and L4-L5 discs slightly more pronounced at the L4-L5 level. NEUROVASCULAR STRUCTURES: Unremarkable. MUSCLES/TENDONS: On the right there is increased fluid and increased T2 signal extending along the distal gluteus medius and minimus tendons likely sequela of longitudinal partial tearing no tendon retraction. On the left and there is also increased T2 signal extending along the distal gluteus medius and minimus tendons less evident compared to the right compatible with minimal longitudinal partial tearing. Remaining muscles and tendons unremarkable. BURSA: Minimal fluid and/or edema in both trochanteric bursa compatible with minimal bursitis. SUBCUTANEOUS SOFT TISSUES: Unremarkable. INTRAPELVIC SOFT TISSUES: Unremarkable. MR/MR sacrum wo con IMPRESSION: 1. Normal sacrum and coccyx. 2. Minimal bilateral trochanteric bursitis. 3. Partial tearing of the distal gluteus medius and minimus tendons right greater than left. 4. Degenerative disc changes in the lower lumbar spine with findings similar to that noted on the prior MRI dated May 2021. Slight increased bulging of the L4-L5 disc. Electronically signed by: Frankie Schroeder MD 06/09/2024 11:46 AM EDT
== END 2024-06-09 09:52 | disposition home or self-care (01) ==
LOC: HO.MRI 09:51
PROVIDERS: PCP Physician Assistant Medical; Visit Provider Physician Assistant Medical
DX: S39.92XA Unspecified injury of lower back, initial encounter (principal)
CPT/HCPCS: 72195

== ENCOUNTER 2024-06-23 11:55 | Outpatient (REF) | payer OTHER, SELFPAY ==
--- NOTE | ~2024-06-23 | XR_ITS ---
EXAMINATION: XR PELVIS 1 VIEW CLINICAL INFORMATION: Pain in unspecified hip M25.559. COMPARISON: Radiographs 11/30/2008 TECHNIQUE: AP view of the pelvis. FINDINGS: No fracture. Hip joint spaces are maintained. Alignment is anatomic. Sacroiliac joints and pubic symphysis are normal. There is enthesopathy over the region of the right greater trochanter. No abnormal soft tissue calcifications. XR/XR pelvis 1-2V IMPRESSION: Mild enthesopathy at the right greater trochanter. Electronically signed by: Scotty Izquierdo MD 08/06/2024 04:49 PM EST
== END 2024-06-23 11:56 | disposition home or self-care (01) ==
LOC: HO.HOSX 11:55
PROVIDERS: Visit Provider Orthopaedic Surgery
DX: M76.891 Other specified enthesopathies of right lower limb, excluding foot (principal); M25.551 Pain in right hip
CPT/HCPCS: 20610; 72170; J0665; J1100; J2003

== ENCOUNTER 2024-06-23 13:24 | Outpatient (AMB) | payer OTHER, SELFPAY ==
--- NOTE | 2024-06-23 13:44 | A.OFFVIS_ITS ---
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 She reports 5 months ago she fell on her coccyx, she had an MRI of her sacrum and coccyx done here in [facility] on 06/09/24 cervical and lumbar MRI done at [facility]. When she stands her pain starts across her buttock and radiates to her ankle, worse after sitting prolonged period and getting out of bed in the morning. She stands by her bedside for a few minutes until she feels everything settle and then she says she drags herself to the bathroom and run hot water over the area which gives her mild relief. Numbness and tingling down the entire right leg. Difficulty with down stairs ambulation but can go up stairs fine. She is unable to sleep at night from symptoms so she uses a foam in between her legs at night however this does not help. She also sits on the heating pad for 30 minutes before work to help her ambulate without pain. 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 Tylenol takes the edge off, unable to take NSAIDs due to upset stomach. Denies past medical treatment. 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 She reports 5 months ago she fell on her coccyx, she had an MRI of her sacrum and coccyx done here in [facility] on 06/09/24 cervical and lumbar MRI done at [facility]. When she stands her pain starts across her buttock and radiates to her ankle, worse after sitting prolonged period and getting out of bed in the morning. She stands by her bedside for a few minutes until she feels everything settle and then she says she drags herself to the bathroom and run hot water over the area which gives her mild relief. Numbness and tingling down the entire right leg. Difficulty with down stairs ambulation but can go up stairs fine. She is unable to sleep at night from symptoms so she uses a foam in between her legs at night however this does not help. She also sits on the heating pad for 30 minutes before work to help her ambulate without pain. 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 Tylenol takes the edge off, unable to take NSAIDs due to upset stomach. Denies past medical treatment. [facility] Medical History Tear of left gluteus medius tendon Tear of left gluteus minimus tendon Tear of gluteus minimus tendon Tear of right gluteus medius tendon GERD (gastroesophageal reflux disease) Vitamin D deficiency Obesity, Class I, BMI 30-34.9 Lumbar spondylosis Headache Arthritis Anxiety Left otitis media Essential hypertension Cervical disc disorder Lumbago Family History Other Alcohol abuse FH: mental illness Substance abuse Social History Housing: House Patient Tobacco Use Status: Never used Tobacco e-Cigarette/Vaping Use: Never Used Second Hand Smoke Exposure: No service: No Current occupational status: employed 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 She has no groin pain with hip range of motion. Results Reviewed Results Reviewed: MR/MR sacrum wo con IMPRESSION: 1. Normal sacrum and coccyx. 2. Minimal bilateral trochanteric bursitis. 3. Partial tearing of the distal gluteus medius and minimus tendons right greater than left. 4. Degenerative disc changes in the lower lumbar spine with findings similar to that noted on the prior MRI dated May 2021. Slight increased bulging of the L4-L5 disc. There is enthesopathy at the greater trochanter that is markedly different than the left Assessment & Plan Assessment & Plan (1) Enthesopathy of right hip: Code(s): M76.891 - Other specified enthesopathies of right lower limb, excluding foot Category: Medical Plan: I injected her right greater trochanteric insertion of her abductor tendons. This gave her some immediate relief. I recommend physical therapy and I prescribed her Celebrex Orders: Orders XR pelvis 1-2V 06/23/24 M25.559 - Pain in unspecified hip PT Evaluation and Treatment Today M76.891 - Other specified enthesopathies of right lower limb, excluding foot Coding Level of Care Code New Pt Level 4 (85793) Diagnoses Enthesopathy of right hip M76.891
[2024-06-23 13:45] VITALS: BMI 29.8
== END 2024-06-23 14:54 | disposition home or self-care (01) ==
PROVIDERS: PCP Physician Assistant Medical; Visit Provider Orthopaedic Surgery
DX: M76.891 Other specified enthesopathies of right lower limb, excluding foot (principal)
CPT/HCPCS: 20610; 99204

== ENCOUNTER 2024-08-04 08:17 | Outpatient (AMB) | payer OTHER, SELFPAY ==
--- NOTE | 2024-08-04 08:28 | A.OFFPC_ITS ---
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 She has chronic right-sided gluteal muscle pain which began following a fall this Summer. Initial treatment included a cortisone injection, providing relief for only two days, and ongoing physical therapy for six weeks which has resulted in some daytime improvement. However, there is persistent severe morning pain making ambulation difficult for over an hour after waking. The pain radiates to the ankle and is associated with muscle spasms. The patient has trialed oral Flexeril with partial effect, and there is consideration for PRP therapy due to the partial muscle tear. The patient is also under management for associated chronic anxiety and experiences related stress at home without significant exacerbations. Historical treatments include duloxetine 30 mg daily, which has aided in anxiety management. Medication for hypertension includes amlodipine 5 mg daily, with blood pressure readings at home consistently at 120/70 mmHg. The patient also has a documented vitamin D deficiency. Additionally, the patient reports osteoarthritis affecting cervical and lumbar regions. Current medications also include Celebrex for inflammation. She sees [facility] annually for skin exams. She is due for fasting labs, and she would like FSH, LH and estrogen checked. Patient was informed and verbally consented to the use of an ambient scribe for clinic note documentation during this visit. Last Cologuard in 2022. Last mammogram 06/20/2023. She has been contacted to schedule her mammogram. Last bone density exam 06/20/2023. The patient had her flu vaccine at the pharmacy. Patient says pneumonia vaccine is also up-to-date with her pharmacy. She is deferring the RSV vaccine. She will schedule an eye exam and gynecological exam. ROS: Constitutional: No unexplained weight loss, fever, chills, fatigue or night sweats. Eyes: No vision changes, blurry vision, double vision, eye pain, eye redness, eye discharge. ENT: No hearing loss, sneezing, congestion, runny nose or sore throat. Respiratory: No shortness of breath, cough or sputum production. Cardiovascular: No chest pain, chest pressure or chest discomfort. No palpitations or pedal edema. Gastrointestinal: No anorexia, nausea, vomiting or diarrhea. No abdominal pain or blood in stool. Genitourinary: No dysuria, hematuria, urinary frequency. Neurologic: No headache, dizziness, syncope Musculoskeletal: see HPI Hematologic/Lymphatics: No bleeding or bruising. No painful lymph nodes. Endocrine: No cold or heat intolerance. No polyuria or polydipsia. Psychiatric: No SI/HI. PE: Constitutional: Alert, in no distress. Head: Normocephalic. Eyes: Pupils are equal, round and reactive to light. Extraocular muscles intact. Ear, Nose and Throat: Canals clear. TMs normal. Normal nasal mucosa. No nasal discharge. No oral lesions. Neck: Supple, Full range of motion. No lymphadenopathy. No palpable thyroid masses. Respiratory: Clear to auscultation. Cardiovascular: S1 S2 regular. No murmurs. Gastrointestinal: Abdomen soft, non-tender, non-distended. Normal bowel sounds. No palpable masses. Neurologic: No focal neurological deficits. Symmetric patellar reflexes. Moves all extremities spontaneously. Sensation intact bilaterally. Skin: No rashes Musculoskeletal: No gross deformities. Extremities: Warm and well perfused. No clubbing, cyanosis or edema. Psychiatric: Normal mood and affect, reports anxiety due to household stress but denies severe issues. [facility] Medical History (Updated 08/04/24 @ 08:51 by TUCKER Fan) Routine physical examination Tear of left gluteus medius tendon Tear of left gluteus minimus tendon Tear of gluteus minimus tendon Tear of right gluteus medius tendon GERD (gastroesophageal reflux disease) Vitamin D deficiency Obesity, Class I, BMI 30-34.9 Lumbar spondylosis Headache Arthritis Anxiety Left otitis media Essential hypertension Cervical disc disorder Lumbago Family History Other Alcohol abuse FH: mental illness Substance abuse Social History (Updated 08/04/24 @ 08:29 by Dena Fonseca CMA) Housing: House Alcohol intake: current Patient Tobacco Use Status: Never used Tobacco e-Cigarette/Vaping Use: Never Used Second Hand Smoke Exposure: No service: No Current occupational status: employed 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 1. Little interest or pleasure in doing things: not at all 2. Feeling down, depressed, or hopeless: not at all 3. Trouble falling or staying asleep, or sleeping too much: not at all 4. Feeling tired or having little energy: not at all 5. Poor appetite or overeating: not at all 6. Feeling bad about yourself - or that you are a failure or have let yourself or your family down: not at all 7. Trouble concentrating on things, such as reading the newspaper or watching television: not at all 8. Moving or speaking so slowly that other people could have noticed. Or the opposite - being so fidgety or restless that you have been moving around a lot more than usual: not at all 9. Thoughts that you would be better off or of hurting yourself in some way: not at all Total score: 0 Depression Screening Interpretation: Negative Depression Screening Done: Yes 93060 - PHQ-9 Billing: Yes Source: Developed by Drs. David Kruger, Anastasia Leo, Daquan Arteaga and colleagues, with an educational eben from [employer]. Thrive Questionnaire Date Thrive assessed: 07/28/24 I am a: Patient What is your living situation today?: I have a steady place to live Within the past 12 months, did the food you bought not last and you didn't have the money to get more?: Never true Within the past 12 months, did you worry whether your food would run out before you got money to buy more?: Never true Do you have trouble paying for medicines?: No Do you have trouble getting transportation to medical appointments?: No Do you have trouble paying your heating and electricity bill?: No Do you have trouble taking care of your child, family member or friend?: No Do you have trouble with day-to-day activities such as bathing, preparing meals, shopping, managing finances, etc.?: No Are you currently unemployed and looking for a job?: No Are you interested in more education?: No Please select the resources that you would like help with: None Currently or been in a relationship where the following occur: No concerns reported THRIVE Score: 0 AUDIT C Alcohol Use Questionnaire (AUDIT-C) 1. How often do you have a drink containing alcohol?: 2-4 times a month 2. How many drinks containing alcohol do you have on a typical day when you are drinking?: 1 or 2 3. How often do you have six or more drinks on one occasion?: Never Total Score: 2 WILLIAMS-7 AMB Questionnaire WILLIAMS-7 Date WILLIAMS - 7 assessed: 08/04/24 Feeling nervous, anxious, or on edge: 1 = Several days Not being able to stop or control worryin = Not at all Worrying too much about different things: 0 = Not at all Trouble relaxin = Not at all Being so restless that it is hard to sit still: 0 = Not at all Becoming easily annoyed or irritable: 0 = Not at all Feeling afraid as if something awful might happen: 0 = Not at all Total WILLIAMS-7 score (0-4 normal; 5-9 mild; 10-14 moderate; 15-21 severe): 1 Source: Developed by Drs. David Kruger, Anastasia Leo, Daquan Arteaga and colleagues, with an educational eben from [employer]. WILLIAMS-7 Assessment Billing WILLIAMS-7 Assessment Tool: WILLIAMS-7 Assessment 42253 Physical exam (Primary Care) Vital Signs: Last Vital Signs Pulse 81 08/04/24 08:29 BP 122/84 08/04/24 08:29 Pulse Ox 99 08/04/24 08:29 Oxygen Delivery Method Room Air 08/04/24 08:29 BMI result Body Mass Index 32.1 Tobacco/Smoking Status: Tobacco use Status Tobacco use date assessed 08/04/24 08/04/24 08:32 Patient Tobacco Use Status Never used Tobacco 08/04/24 08:32 e-Cigarette/Vaping Use Never Used 08/04/24 08:32 PHQ-9: PHQ-9 Score PHQ-9: Total score 0 08/04/24 08:33 Depression Screening Interpretation: Negative Thrive Assessment: Date of Thrive Assessment Date Thrive assessed 07/28/24 08/04/24 08:32 Currently or been in a relationship where the following occur: No concerns reported Coding Level of Care Code Est Pt Prev Care >65y(27930) Diagnoses Routine physical examination Z00.00 Vitamin D deficiency E55.9 Enthesopathy of right hip M76.891 Essential hypertension I10 Additional Codes WILLIAMS-7 Assessment Billing - WILLIAMS-7 Assessment Tool: WILLIAMS-7 Assessment 76170 ([id number]) PHQ-9 - 97039 - PHQ-9 Billing: Yes ([id number]) Assessment & Plan Assessment & Plan (1) Routine physical examination: Code(s): Z00.00 - Encounter for general adult medical examination without abnormal findings Category: Medical (2) Vitamin D deficiency: Code(s): E55.9 - Vitamin D deficiency, unspecified Category: Medical (3) Enthesopathy of right hip: Code(s): M76.891 - Other specified enthesopathies of right lower limb, excluding foot Category: Medical (4) Essential hypertension: Code(s): I10 - Essential (primary) hypertension Category: Medical Plan Patient is seen today for a routine physical. As part of this visit we reviewed the following issues, which are considered and essential part of preventative health in this age group: - Breast Cancer screening - Annual Senior Sas Developer exam - Screening for colon cancer - Blood pressure screening - Cholesterol screening - Osteoporosis prevention including calcium/vitamin D intake, weight bearing exercise & smoking cessation - Nutritional and exercise counseling - Counseling of injury prevention including fire prevention, smoke alarms and seat belt usage - Recommendations about immunizations - Recommendation of an eye exam 1. Right-sided gluteal muscle strain with partial tear: Continue current physical therapy regimen. Consider adjusting Flexeril dosing to 10 mg at bedtime and 5 mg in the morning if well tolerated, for muscle relaxation and pain relief. Evaluate the need for PRP therapy if no improvement. Follow-up with orthopedics on for possible intervention. 2. Chronic pain: Manage with combination of pharmacological (Flexeril, Celebrex) and non-pharmacological (physical therapy) approaches. Monitor response to adjusted medication regimen. 3. Anxiety: Continue duloxetine 30 mg daily. Encourage stress reduction techniques and monitor response. 4. Hypertension: Continue amlodipine 5 mg daily and lifestyle modifications including low sodium diet. 5. Osteoarthritis: Continue current management, monitor for progression. 6. Vitamin D deficiency: Evaluate current vitamin D level. 7. Stress-related concerns: Continue to address lifestyle modifications, consider supporting resources if stress worsens. Follow up in 6 months. Orders: Orders Comprehensive Met. Panel Today I10 - Essential (primary) hypertension, Z00.00 - Encounter for general adult medical examination without abnormal findings, Z13.6 - Encounter for screening for cardiovascular disorders Complete Blood Count no Diff Today I10 - Essential (primary) hypertension, Z00.00 - Encounter for general adult medical examination without abnormal findings, Z13.6 - Encounter for screening for cardiovascular disorders Follicle Stimulating Hormone Today M13.80 - Other specified arthritis, unspecified site Lutenizing Hormone Today M13.80 - Other specified arthritis, unspecified site Estrogen Today M13.80 - Other specified arthritis, unspecified site Vitamin D 1,25 dihydroxy Today E55.9 - Vitamin D deficiency, unspecified Lipid Panel Today E78.5 - Hyperlipidemia, unspecified, I10 - Essential (primary) hypertension, Z00.00 - Encounter for general adult medical examination without abnormal findings, Z13.6 - Encounter for screening for cardiovascular disorders
[2024-08-04 08:29] VITALS: BP 122/84; PULSE 81; O2SAT 99; BMI 32.1
--- OUTSIDE RECORDS SUMMARY | 2024-08-06 12:53 | XMS_ITS | Data Portability ---
Author Organization [facility] Address [address] [place] [address] Assessment No assessment recorded. Plan of Treatment Reminders Order Date Submit Date Provider Last Modified By Organization Details Last Modified Time Details Appointments None recorded. Lab glycohemogl obin, total, blood 2018 019 [facility], [address] [place] [address], [phone], 9 07:41:53 CMP, serum or plasma 2018 019 [facility], [address] [place] [address], [phone], 9 07:41:53 CBC 2018 019 [facility], [address] [place] [address], [phone], 9 07:41:53 lipids, total, serum 2018 019 [facility], [address] [place] [address], [address], 9 07:41:53 vitamin D, 25-hydroxy, total, serum 2018 019 [facility], [address] [place] [address], [address], 9 07:41:53 colon cancer screening, stool 2018 019 [facility], [address] [place] [address] [place], [address], 9 18:03:49 TSH + T4, serum 2018 019 bel[facility], [address] [place] [address],[place], [address], 9 16:01:44 urinalysis, dipstick 2018 019 belinda [facility], [address] [place] [address],[facility] [place], [address], 9 16:01:44 hepatitis C panel, serum 2018 019 belinda [facility], [address] [place] [address],[place], [address], 9 16:01:44 Referral None recorded. Procedures None recorded. Surgeries None recorded. Imaging XR, lumbosacral spine 2018 019 j[facility] Not available 9 08:39:11 MAMMO, screening, bilateral 2018 019 [facility], [address], [place], [address], 9 16:49:53 Medication Orders None recorded. Patient TargetsNo targets recorded. Patient InstructionsNo instructions recorded. Reason for Referral None Reported. Results Created Date Observation Date Name Description Value Unit Range Abnormal Flag Note LastModifiedBy Organization Detail LastModifiedTime 09/30/19 19 09/30/2018 urina lysis , dipst ick Leukocytes Negati ve Not Available [address],[facility] [place], [address], 09/30/2018 14:55:21 09/30/19 19 09/30/2018 urina lysis , dipst ick Nitrite negati ve Not Available [address],[place], [address], 09/30/2018 14:55:21 09/30/1909/30/2018 urina lysis , dipst ick Urobilinogen .2 Not Available [facility] O ld Address [address] [place] [address],[place], [address], 09/30/2018 14:55:21 09/30/1909/30/2018 urina lysis , dipst ick Protein Negati ve Not Available [facility] Old Address [address] [place] [address],[place]aleb [place], [address], 09/30/2018 14:55:21 09/30/1909/30/2018 urina lysis , dipst ick pH 5.0 Not Available [facility] Old [address],[place], [address], 09/30/2018 14:55:21 09/30/1909/30/2018 urina lysis , dipst ick Blood Non-He molyze d: Trace Not Available [facility] Old Address [address] [place] [address],[place], [address], 09/30/2018 14:55:21 09/30/1909/30/2018 urina lysis , dipst ick Specific [place] 1.030 Not Available [facility] Ol d Address [address] [place] [address],[place], [address], 09/30/2018 14:55:21 09/30/1909/30/2018 urina lysis , dipst ick Ketone Negati ve Not Available [facility] Old [address],[place], [address], 09/30/2018 14:55:21 09/30/1909/30/2018 urina lysis , dipst ick Bilirubin Negati ve Not Available [address],[place], [address], 09/30/2018 14:55:21 09/30/1909/30/2018 urina lysis , dipst ick Glucose Negati ve Not Available [facility] Old Address [address] [place] [address], [address], 09/30/2018 14:55:21 09/30/1909/30/2018 urina lysis , dipst ick Appearance Clear Not Available [facility] Old Address [address] [place], [place] [address], [address], 09/30/2018 14:55:21 09/30/1909/30/2018 urina lysis , dipst ick Color Pale Yellow Not Available [facility] Old Address [address] [place] [address],[place], [address], 09/30/2018 14:55:21 10/10/19 19 10/09/2018 MAMMO , scree tish, bilat eral No observ ation record ed. [address], [place], [address], 10/11/2018 05:44:19 Result Notes None recorded. Problems Name Problem SNOMED Code Status Onset Date Resolution Date Notes Provider Name and Address Organization Details Recorded Time Anxiety 27257546 Active 2018 Enid zavala [facility] 9 09:08:40 Hypertensive disorder 66678897 Active 2018 En[place] zavala [facility] 9 09:08:55 Acid reflux 377341332 Active 2018 Jes Ferreira NP, [address] [place] [address], [phone], [facility] 9 15:17:03 Problem Notes None recorded. Procedures Surgical History Date Name Laterality Status Provider Name and Address Organization Details Recorded Time 6 arthroscopy of knee completed Jes Ferreira NP, S [address] [place] [address], [phone], [facility] 09/30/2018 09:57:31 Tubal Ligation completed Enid Chau [facility] 09/30/2018 09:09:43 Imaging Results Imaging Date Name Status LastModified by Organiz jesus Details LastModified Time 10/09/2018 MAMMO, screening, bilateral completed [address], [place], [address], 10/11/2018 05:44:19 Procedure Notes None recorded. Medical Equipment None Reported. Allergies No known drug allergies Medications Name Sig Start Date Stop Date Status Note LastModified by Organization Details LastModified Time atenolol 25 mg tablet TAKE 1 TABLET BY MOUTH TWICE DAILY. NEED APPOINTMENT FOR FURTHER REFILLS active Not Available Not Available No t Available lorazepam 0.5 mg tablet 1 tab po bid prn 2017 active Not Available Not Available Not Avai lable omeprazole 20 mg capsule,amarilys yed release Take 1 capsule every day by oral route. active Not Available Not Available No t Available cholecalcife rol (vitamin D3) 1,250 mcg (50,000 unit) capsule Take 1 capsule every week by oral route. active Not Available Not Available No t Available Vitals Date Recorded Body height Body mass index (BMI) Body weight Heart rate Oxygen saturation Oxygen saturation in Arterial blood by Pulse oximetry Systolic blood pressure Diastolic blood pressure Provider Name and Address Organization Details Last Updated DateTime 9 161.29 cm 30.7 kg/m2 13273.5 4 g 63 /min 98 % 98 % 130 mm[Hg] 80 mm[Hg] Enid Chau [facility] 9 14:52:29 Social History Question Answer Notes LastModified by Organizat ion Details LastModified Time Tobacco Smoking Status Never Smoker Not Available [facility] 06/29/2020 03:36:24 What Was The Date Of Your Most Recent Tobacco Screening? 09/30/2018 [id number] Information not available 06/29/2020 Sex: Female Functional Status None recorded. Mental Status None recorded. Family History Relationship Description Onset Age of this Age Resolved Age Notes LastModified by Organization Details LastModified Time Mother Hypertensive disorder tbalicki Not available 2018 09:10:14 Mother Malignant neoplasm of uterus tbalicki Not available 2018 09:10:29 Father Peripheral vascular disease 59 tbalicki Not available 2018 09:10:50 Father Renal failure syndrome 59 tbalicki Not available 2018 09:11:09 Father Type 2 diabetes mellitus 59 tbalicki Not available 2018 09:11:27 Brother Atrial fibrillation belinda Not available 11/2018 09:56:55 Medical History No medical history recorded. Gynecological HistoryNo gynecological history recorded. Obstetrics History GPAL:G 0 P 0 0 0 0 Past Encounters Encounter ID Performer Location Encounter Start Date Encounter Closed Date Diagnosis/Indication Diagnosis SNOMED-CT Code Diagnosis ICD10 Code [id number] Jes Ferreira NP, S [facility] [address] [place] [address] 09/30/2018 14:41:11 09/30/2018 16:27:17 Adult health examination 400063996 Z00.01 Low back pain 495111337 M54.5 Acid reflux 932536567 K2 1.9 Hypertensive disorder 38 639648 I10 Anxiety 63394920 F41.9 Vitamin D deficiency 347 85907 E55.9 Hyperglycemia 02357435 R 73.9 Screening procedure 2012 5006 Z13.9 Health Concerns Section Related Observation LastModified by Organization Detai ls LastModified Time None Recorded Concern Status LastModified by Organization Details LastModified Time None Recorded Advance Directives Directive None Recorded Payers Encounter Date Sequence Insurance Name Policy Number Policy Malin Covered Member ID Malin Member ID Guarantor Name 09/30/2018 1 [facility] [id number] Lois Santos [id number] Lois Santos Notes Date Note Type Note Provider Name and Address Organization Details Recorded Time 09/30/2018 text/html Annual WellnessReported bypatient.Diet and Nutrition:high caloric intake;high carbohydrate meals; discussed diet improvement Fracture Risk:no history of fractures; no recent explained fracture; no sudden unexplained fractures; no previous musculoskeletal injuries Physical Activity:good physical condition;does not exercise on a regular basis;deconditioned due to sedentary lifestyle Additional Lifestyle Factors:no tobacco use; drinks alcohol (mild-moderate) Depression Risk:no significant changes in weight; no sleep disturbances or insomnia; no agitation; no thoughts of suicide; no history of depression; no history of mood disorders;feels sad, empty, or tearful;loss of interest in activities;loss of energy;feelings of worthlessness or guilt Hearing:loss of hearing: in both ears; mild Vision:worse near; reading glasses help 2 problems- 1) anxiety 2) back pain-worse if lying prone Jes Ferreira NP, [address] [place], [address], [facility] 09/30/2018 16:02:27 OBGyn Episode No OBEpisode recorded.
== END 2024-08-04 09:03 | disposition home or self-care (01) ==
PROVIDERS: PCP Physician Assistant Medical; Visit Provider Physician Assistant Medical
DX: Z00.00 Encounter for general adult medical examination without abnormal findings (principal); E55.9 Vitamin D deficiency, unspecified; M76.891 Other specified enthesopathies of right lower limb, excluding foot; I10 Essential (primary) hypertension

== ENCOUNTER → 2024-08-04 08:17 | Outpatient (BNVA) | payer OTHER, SELFPAY | PROVIDERS: PCP Physician Assistant Medical; Visit Provider Physician Assistant Medical | DX: Z00.00 Encounter for general adult medical examination without abnormal findings (principal); E55.9 Vitamin D deficiency, unspecified; M76.891 Other specified enthesopathies of right lower limb, excluding foot; I10 Essential (primary) hypertension; S76.311D Strain of muscle, fascia and tendon of the posterior muscle group at thigh level, right thigh, subsequent encounter; G89.29 Other chronic pain; F41.9 Anxiety disorder, unspecified; M19.90 Unspecified osteoarthritis, unspecified site; F43.9 Reaction to severe stress, unspecified; Z79.899 Other long term (current) drug therapy | CPT/HCPCS: 96127 ==

== ENCOUNTER 2024-08-14 13:54 | Outpatient (AMB) | payer OTHER, SELFPAY ==
[2024-08-14 14:45] VITALS: BMI 32.1
--- NOTE | 2024-08-14 14:45 | A.OFFVIS_ITS ---
Vital Signs 08/14/24 14:45 Height 5 ft 3 in Weight 181 lb BMI 32.1 Intake Visit Reasons: ov f/u right hip pain Intake Note: Lois is a 69 year old female who presents today for a follow up of her right hip pain. Her pain started sometime in December of 2023 s/p fall. At her last visit on 06/23/24 her right greater trochanteric abductor tendon insertion was injected, given an order for PT and Rx for Celebrex. Patient reports great relief for only 2 days following the injections and some mild relief with PT. She reports that she has continue pain in the right hip, she finds relief with stretching. Mornings are the worst. Allergies No Known Allergies Allergy (Verified 08/04/24 08:28) HPI HPI ov f/u right hip pain: Details: Lois is a 69 year old female who presents today for a follow up of her right hip pain. Her pain started sometime in December of 2023 s/p fall. At her last visit on 06/23/24 her right greater trochanteric abductor tendon insertion was injected, given an order for PT and Rx for Celebrex. Patient reports great rel ief for only 2 days following the injections and some mild relief with PT. She reports that she has continue pain in the right hip, she finds relief with stretching. Mornings are the worst. Overall however she does feel significantly better than she did at last visit. [facility] Medical History (Updated 08/04/24 @ 08:51 by TUCKER Fan) Routine physical examination Tear of left gluteus medius tendon Tear of left gluteus minimus tendon Tear of gluteus minimus tendon Tear of right gluteus medius tendon GERD (gastroesophageal reflux disease) Vitamin D deficiency Obesity, Class I, BMI 30-34.9 Lumbar spondylosis Headache Arthritis Anxiety Left otitis media Essential hypertension Cervical disc disorder Lumbago Family History Other Alcohol abuse FH: mental illness Substance abuse Social History Housing: House Alcohol intake: current Patient Tobacco Use Status: Never used Tobacco e-Cigarette/Vaping Use: Never Used Second Hand Smoke Exposure: No service: No Current occupational status: employed 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 Assessment & Plan Assessment & Plan (1) Tear of right gluteus medius tendon: Code(s): S76.011A - Strain of muscle, fascia and tendon of right hip, initial encounter Category: Medical Plan: This is a very pleasant 69-year-old woman who is improving, albeit slowly, with right greater trochanteric bursitis versus abductor tendinitis versus abductor tendon tearing. She continues to have variable amounts of pain depending on her activity. I think the physical therapy is helping her and she agrees. I do not recommend anything at this point I then follow up in 6-8 weeks. If her pain persists I think it would be reasonable to consider a ultrasound-guided injection into the tendon insertion of the medius on the greater. We will see her back to discuss. Coding Level of Care Code Est Pt Level 3 (72339) Diagnoses Tear of right gluteus medius tendon S76.011A
== END 2024-08-14 16:10 | disposition home or self-care (01) ==
PROVIDERS: PCP Physician Assistant Medical; Visit Provider Orthopaedic Surgery
DX: S76.011D Strain of muscle, fascia and tendon of right hip, subsequent encounter (principal)
CPT/HCPCS: 99213

== ENCOUNTER → 2024-08-14 13:54 | Outpatient (BNVA) | payer OTHER, SELFPAY | PROVIDERS: PCP Physician Assistant Medical; Visit Provider Orthopaedic Surgery ==

== ENCOUNTER 2024-09-22 10:52 | Outpatient (RCR) | payer OTHER, SELFPAY ==
--- NOTE | 2024-07-04 16:02 | MHC.PT.EP ---
[facility] [place] Office [place] Office [place] Office [address] [place] [address] [phone] F: [phone] F: [phone] F: [phone] F: [phone] Physical Therapy Plan of Care Date of Evaluation: 07/03/24 Date of Surgery: n/a Diagnosis: Other enthesopathies of right lower limb, excluding foot Assessment: Pt is a pleasant and motivated 69yo F who presents to PT with pain in R glutes radiating into RLE for about ~6 months after falling. She presents to PT with current impairments in pain, decreased ROM, decreased core stabilization, decreased hip/glute strength, soft tissue restrictions, decreased muscle length, decreased balance/proprioception, and impaired gait. She is limited functionally by morning time, prolonged sitting, prolonged standing, walking, bending, and ascending stairs. She is a good candidate for skilled PT in order to address current impairments to facilitate return to PLOF. She is recommended to be seen 2x/week for 4 weeks and will be reassessed at that time Frequency and Duration: The patient will be seen 2x/week for 4 weeks Short Term Goals: Pt will be I with HEP to promote self management of symptoms Pt will get out of bed in the morning with pain < 5/10 Winding Department Supervisor Goals: Pt will tolerate prolonged sitting > 1 hour with improved posture and minimal to no pain or discomfort Pt will ambulate on even and uneven surfaces > 1 hour with improved gait mechanics and minimal to no pain or discomfort Pt will ascend/descend 1 flight of stairs with reciprocal pattern without UE support safely without increased pain or discomfort Treatment Plan: Modalities to reduce pain, spasms and effusion. Manual therapy to restore motion and function. Therapeutic exercise to improve strength and flexibility. Neuromuscular re-education for posture and balance. Therapeutic activities to return to functional activities of daily living. Electronically signed by: Haydee Freeman, PT, DPT Please sign and return to therapist. Thank you for your referral.
--- NOTE | 2024-11-10 08:21 | MHC.PT.DC ---
[facility] [place] [facility] [place] [facility] [place] Office [address] Garrison Graff [address] [phone] F: [phone] F: [phone] F: [phone] F: [phone] Physical Therapy Discharge Report Diagnosis: Other enthesopathies of right lower limb, excluding foot Date of Surgery: n/a Date of Evaluation: 07/03/24 Date of Discharge: 11/10/24 Treatments to Date: 19 Cancellations to Date: No Shows to Date: Discharge Status: Discharge Summary: Pt was seen for PT from 07/03/24-09/22/24. Her last attended appointment was 09/22/24. She had one more appointment scheduled however pt cancelled. She is being D/C from skilled PT as she has not attended or called to reschedule in > 30 days. Pt current level of function unknown at this time Electronically signed by: Haydee Freeman, PT, DPT Please sign and return to therapist. Thank you for your referral.
== END 2024-11-10 08:21 | disposition home or self-care (01) ==
LOC: HO.PT 10:52
PROVIDERS: PCP Physician Assistant Medical; Visit Provider Orthopaedic Surgery
DX: M76.891 Other specified enthesopathies of right lower limb, excluding foot (principal)
CPT/HCPCS: 97110; 97140; 97162

== ENCOUNTER 2024-10-06 11:44 | Outpatient (AMB) | payer OTHER, SELFPAY ==
--- NOTE | 2024-10-06 11:47 | MHC.OFFVIS ---
Vital Signs 10/06/24 11:48 Height 5 ft 3 in Weight 183 lb BMI 32.4 BP 158/78 H Blood Pressure Location Lt brachial Position Sitting Respiration 16 Pulse 88 Pulse Source Pulse Oximeter Pulse Oximetry (%) 98 Oxygen Delivery Method Room Air Intake Visit Reasons: train of muscle, fascia and tendon of right hip Chief Operator Synthesis Required: No Allergies No Known Allergies Allergy (Verified 10/06/24 11:49) Medication List - Last Reconciled 10/06/24 by Duyen Schultz LPN amlodipine 5 mg PO DAILY celecoxib (Celebrex) 200 mg PO DAILY cyclobenzaprine mg PO duloxetine 30 mg PO DAILY HPI HPI train of muscle, fascia and tendon of right hip: Details: History of Present Illness The patient is a 69-year-old female presenting with chronic right lateral hip pain that radiates down her leg. The onset of pain was approximately eight months ago after a fall while aboard a [place] boat. MRI findings suggest a tear in the right gluteus medius tendon. The pain intensity was initially 10/10, reducing slightly to 9/10 over recent months. Pain exacerbates in the morning upon waking and transition from laying down to standing. It improves post-heat application and hot showers but remains persistent, impacting her work and daily living. Previous management includes unsuccessful steroid injections and soft tissue massage therapy. Planned management includes diagnostic ultrasound and possible PRP or cortisone injections. Complicating factors involve arthritis and associated discomfort. Pain Description - Onset: Approximately eight months ago following a fall. - Quality: Sharp, severe. - Primary Location: Right lateral hip and coccyx area. - Radiation: Down the right leg to the ankle. - Severity: Initially 10/10, now 9/10. - Aggravating Factors: Standing, sitting, morning hours, late afternoon, lack of proper posture, long periods of sitting due to work. - Alleviating Factors: Heat application, hot showers, walking with caution. - Impact: Difficulty standing up in the morning, limited walking distance, disrupted sleep averaging five hours, uses cushion at work. Physical Exam Results - MRI: Revealed right gluteus medius tendon tear (reported in history). Pain Management - Affect: Pain results in significant distress and affects sleep quality. - Analgesia: Steroid injection provided short-term relief; present pain levels remain high at 9/10. - Adverse Effects: Not specifically reported. - Activities of Daily Living: Substantial impact on daily functioning, including difficulty in standing, sitting, and walking for long periods. - Aberrant Drug Related Behaviors: None reported. [facility] Medical History Routine physical examination Tear of left gluteus medius tendon Tear of left gluteus minimus tendon Tear of gluteus minimus tendon Tear of right gluteus medius tendon GERD (gastroesophageal reflux disease) Vitamin D deficiency Obesity, Class I, BMI 30-34.9 Lumbar spondylosis Headache Arthritis Anxiety Left otitis media Essential hypertension Cervical disc disorder Lumbago Family History Other Alcohol abuse FH: mental illness Substance abuse Social History Housing: House Alcohol intake: current Patient Tobacco Use Status: Never used Tobacco e-Cigarette/Vaping Use: Never Used Second Hand Smoke Exposure: No service: No 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 occupational status: employed 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 Current occupational exposures/hazards: Yes Cognitive needs: No Hearing needs: No Vision needs: Yes Physical Exam Vital Signs: Last Vital Signs Pulse 88 10/06/24 11:48 Resp 16 10/06/24 11:48 BP 158/78 H 10/06/24 11:48 Pulse Ox 98 10/06/24 11:48 Oxygen Delivery Method Room Air 10/06/24 11:48 BMI result Body Mass Index 32.4 Assessment & Plan Assessment & Plan (1) Piriformis syndrome: Code(s): G57.00 - Lesion of sciatic nerve, unspecified lower limb Category: Medical (2) Tear of right gluteus medius tendon: Code(s): S76.011A - Strain of muscle, fascia and tendon of right hip, initial encounter Category: Medical Plan Plan The current plan involves conducting an ultrasound-guided diagnostic injection to the right gluteus medius tendon vs. piriformis vs. TF epidural. This will help determine the specific source of pain, allowing for targeted treatment such as cortisone injections or PRP if necessary. The patient should maintain her physical therapy regimen, as it focuses on soft tissue massage to manage muscle tightness. Ongoing assessment of the patient's condition and treatment response is planned to ensure optimal pain management and functional recovery. Patient was informed and verbally consented to the use of an ambient scribe for clinic note documentation during this visit. Discussion Notes During the consultation, I discussed the potential issue regarding the right gluteus medius tendon tear and its contribution to the ongoing pain. The diagnostic plan includes an ultrasound-guided injection to confirm the pain source and consider subsequent treatments, such as PRP or cortisone injections based on response. We addressed the interplay of lumbar issues with the current pain, emphasizing the need for targeted diagnostic interventions. The patient was informed of the possible outcomes and risks of the proposed treatment plan. Consent for the diagnostic procedure was obtained, understanding the potential benefits. We agreed that follow-up care and further adjustments to the treatment plan might be needed based on diagnostic outcomes and symptomatic changes. Patient Instructions - Schedule the ultrasound-guided hip injection as soon as possible. - Continue with heat applications and hot showers for pain relief. - Maintain the prescribed physical therapy regimen. - Avoid activities that exacerbate pain, such as prolonged sitting. - Report any changes in pain severity or new symptoms promptly. - Utilize supportive measures at work including cushions to alleviate discomfort. Coding Level of Care Code New Pt Level 4 (42870) Diagnoses Piriformis syndrome G57.00 Tear of right gluteus medius tendon S76.011A
[2024-10-06 11:48] VITALS: BP 158/78; PULSE 88; RESP 16; O2SAT 98; BMI 32.4
== END 2024-10-06 12:14 | disposition home or self-care (01) ==
PROVIDERS: PCP Physician Assistant Medical; Referring Provider Orthopaedic Surgery; Visit Provider Internal Medicine
DX: G57.00 Lesion of sciatic nerve, unspecified lower limb (principal); S76.011A Strain of muscle, fascia and tendon of right hip, initial encounter
CPT/HCPCS: 99204

== ENCOUNTER → 2024-10-06 11:44 | Outpatient (BNVA) | payer OTHER, SELFPAY | PROVIDERS: PCP Physician Assistant Medical; Referring Provider Orthopaedic Surgery; Visit Provider Internal Medicine ==

== ENCOUNTER 2024-10-17 10:52 | Outpatient (AMB) | payer OTHER, SELFPAY ==
--- NOTE | 2024-10-17 11:21 | MHC.OFFVIS ---
Vital Signs 10/17/24 11:22 Height 5 ft 3 in Weight 184 lb BMI 32.6 BP 161/79 H Blood Pressure Location Lt brachial Position Sitting Respiration 16 Pulse 83 Pulse Source Pulse Oximeter Pulse Oximetry (%) 96 Oxygen Delivery Method Room Air Intake Visit Reasons: US Guided Hip Inj Manager Income Tax Required: No Actuarial Director: Actuarial Director Present Accompanied by: Janes Lauren Allergies No Known Allergies Allergy (Verified 10/17/24 11:25) Medication List - Last Reconciled 10/17/24 by Duyen Schultz LPN amlodipine 5 mg PO DAILY celecoxib (Celebrex) 200 mg PO DAILY cyclobenzaprine mg PO duloxetine 30 mg PO DAILY HPI HPI US Guided Hip Inj: Details: History of Present Illness The patient is a 69-year-old female presenting with pain primarily located in the greater trochanter region. Her pain has been persistent, with peak severity in the morning reaching 10+ out of 10. There is clear mention of pain radiating upon neck movement, suggestive of cervical radiculopathy. She attempted to manage symptoms with new neck support during sleep, noting peripheral improvements in neck comfort but persistent trochanteric pain. The patient has not yet begun medication and employs positional sleep aids to mitigate nightly discomfort. Currently, a diagnostic injection is the focus of evaluation to identify specific pain sources and consider further targeted therapeutic measures if necessary. Pain Description - Onset and Timing: Present, worse in the morning with a peak of 10+ out of 10. - Quality and Character: Radiating pain; suggestive of nerve involvement. - Primary Location: Right greater trochanter. - Areas of Radiation: Down to the ankle upon neck movement. - Aggravating Factors: Neck movement such as bending. - Alleviating Factors: New neck pillow, pillow between legs for sleep support. - Interference with activities: Severe morning pain impacting daily routines. Physical Exam - Musculoskeletal- Tenderness noted over right greater trochanteric area. Results - Tests and Diagnostics: Ultrasound used to identify the location of the gluteus medius tendon. Pain Management - Affect: Persistent morning pain impacts comfort and daily functioning. - Analgesia: Current pain is 4-5 out of 10 during the visit; goal to reduce pain to 0-1 post-injection. - Adverse Effects: Not currently on medication to report side effects. - Activities of Daily Living: Pain restricts normal morning activities and requires modifications like using a neck pillow. - Aberrant Drug Related Behaviors: None reported or evidenced. [facility] Medical History Routine physical examination Tear of left gluteus medius tendon Tear of left gluteus minimus tendon Tear of gluteus minimus tendon Tear of right gluteus medius tendon GERD (gastroesophageal reflux disease) Vitamin D deficiency Obesity, Class I, BMI 30-34.9 Lumbar spondylosis Headache Arthritis Anxiety Left otitis media Essential hypertension Cervical disc disorder Lumbago Family History Other Alcohol abuse FH: mental illness Substance abuse Social History Housing: House Alcohol intake: current Patient Tobacco Use Status: Never used Tobacco e-Cigarette/Vaping Use: Never Used Second Hand Smoke Exposure: No service: No 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 occupational status: employed 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 Pre-procedure oxygen saturation, heart rate, and blood pressure were recorded. The skin was prepped with Chloroprep, and draped in a sterile fashion. With the use of ultrasound the greater trochanter was identified. A 21-gauge 80mm needle was then advanced toward the distal GM tendon and GT bursa. Once in position, and after negative aspiration, 0.5% ropivacaine was injected (5 mL total). There was no evidence of paresthesias throughout needle placement. The stylet was replaced and then the needle was withdrawn. The patient tolerated the procedure well and there was no evidence of procedural complications. The patient was observed in the procedure room for 20 minutes, vitals were stable, and discharged in stable condition. Coding Additional procedure code (CPT) needed Assessment & Plan Assessment & Plan (1) Tear of right gluteus medius tendon: Code(s): S76.011A - Strain of muscle, fascia and tendon of right hip, initial encounter Category: Medical (2) Greater trochanteric pain syndrome: Code(s): M25.559 - Pain in unspecified hip Category: Medical Plan Plan Patient was informed and verbally consented to the use of an ambient scribe for clinic note documentation during this visit. 1. Greater Trochanteric Pain Syndrome Administered a diagnostic injection to determine if pain reduction occurs post-treatment, potentially guiding further interventions. Upcoming considerations will include therapeutic approaches like PRP based on response. 2. Cervical Radiculopathy Observed links between neck movements and radiating pain. Further evaluation may be needed if primary pain relief is not achieved through the trochanteric focus. Discussion Notes I discussed with the patient the purpose of today?s diagnostic injection for her gluteus medius tendon to localize the pain source accurately. The potential outcomes and next steps were explored, including the temporary nature of this injection's relief and the consideration of PRP treatment upon confirming diagnosis accuracy. I mentioned the benefits, temporary symptomatic relief, and the possibility of further diagnostic efforts if necessary, emphasizing the need to observe changes in pain levels as a guide for future strategies. Guidance was given on observing pain status following the injection, considering follow-up adjustments based on her pain response. Patient Instructions - Monitor pain levels closely after receiving the diagnostic injection. - Note if there is a significant reduction in pain to help guide further treatment. - Consider scheduling the earliest appointment of the day for any follow-up injections. - Use positional supports, such as a neck pillow, consistently to manage cervical discomfort. - Report any changes or concerns regarding pain severity or new symptoms promptly. Coding Level of Care Code Est Pt Level 3 (60646) Diagnoses Tear of right gluteus medius tendon S76.011A Greater trochanteric pain syndrome M25.559
[2024-10-17 11:22] VITALS: BP 161/79; PULSE 83; RESP 16; O2SAT 96; BMI 32.6
--- OUTSIDE RECORDS SUMMARY | 2024-10-17 11:56 | XMS_ITS | Data Portability ---
Author Organization [facility], Home Service Address [address] [place] [address] Assessment No assessment recorded. Plan of Treatment Reminders Order Date Submit Date Provider Last Modified By Organization Details Last Modified Time Details Appointments None recorded. Lab glycohemogl obin, total, blood 2018 019 [facility], [address] [place] [address], [address], [place], [address], 9 07:41:53 CMP, serum or plasma 2018 019 [facility], [address] [place] [address], [facility] [address], [place], [address], 9 07:41:53 CBC 2018 019 [facility], [address] [place] [address], [facility] [address], [place], [address], 9 07:41:53 lipids, total, serum 2018 019 [facility], [address] [place] [address], [address], [place], [address], 9 07:41:53 vitamin D, 25-hydroxy, total, serum 2018 019 [facility], [address] [place] [address], [address], [place], [address], 9 07:41:53 colon cancer screening, stool 2018 019 [facility], [address] [facility], [address], [place], [address], 9 18:03:49 TSH + T4, serum 2018 019 [facility], [address] [facility], [address], [place], [address], 9 16:01:44 urinalysis, dipstick 2018 [facility], [address] [facility], [address], [place], [address], 9 16:01:44 hepatitis C panel, serum 2018 [facility], [address] [facility], [address], [place], [address], 9 16:01:44 Referral None recorded. Procedures None recorded. Surgeries None recorded. Imaging XR, lumbosacral spine 2018 jvanasse Not available 9 08:39:11 MAMMO, screening, bilateral 2018 [facility] Scheduling, [address] [facility], [place], [address], 9 16:49:53 Medication Orders None recorded. Patient TargetsNo targets recorded. Patient InstructionsNo instructions recorded. Reason for Referral None Reported. Results Created Date Observation Date Name Description Value Unit Range Abnormal Flag Note LastModifiedBy Organization Detail LastModifiedTime 09/30/1909/30/2018 urina lysis , dipst ick Leukocytes Negati ve Not Available [facility] [address], [place], [address], 09/30/2018 14:55:21 09/30/19 19 09/30/2018 urina lysis , dipst ick Nitrite negati ve Not Available [address], [place], [address], 09/30/2018 14:55:21 09/30/1909/30/2018 urina lysis , dipst ick Urobilinogen .2 Not Available [address], [place], [address], 09/30/2018 14:55:21 09/30/1909/30/2018 urina lysis , dipst ick Protein Negati ve Not Available [address], [place], [address], 09/30/2018 14:55:21 09/30/1909/30/2018 urina lysis , dipst ick pH 5.0 Not Available [address], [place], [address], 09/30/2018 14:55:21 09/30/1909/30/2018 urina lysis , dipst ick Blood Non-He molyze d: Trace Not Available [address], [place], [address], 09/30/2018 14:55:21 09/30/1909/30/2018 urina lysis , dipst ick Specific [place] 1.030 Not Available [address], [place], [address], 09/30/2018 14:55:21 09/30/1909/30/2018 urina lysis , dipst ick Ketone Negati ve Not Available [address], [place], [address], 09/30/2018 14:55:21 09/30/1909/30/2018 urina lysis , dipst ick Bilirubin Negati ve Not Available [address], [place], [address], 09/30/2018 14:55:21 09/30/1909/30/2018 urina lysis , dipst ick Glucose Negati ve Not Available [facility] [address] [facility] [address], [place], [address], 09/30/2018 14:55:21 09/30/1909/30/2018 urina lysis , dipst ick Appearance Clear Not Available [facility] [address] [facility] [address], [place], [address], 09/30/2018 14:55:21 09/30/1909/30/2018 urina lysis , dipst ick Color Pale Yellow Not Available [address], [place], [address], 09/30/2018 14:55:21 10/10/1910/09/2018 MAMMO , chagoe tish, bilat eral No observ ation record ed. [address], [place], [address], 10/11/2018 05:44:19 Result Notes None recorded. Problems Name Problem SNOMED Code Status Onset Date Resolution Date Notes Provider Name and Address Organization Details Recorded Time Anxiety 27694748 Active 2018 Enid zavala [facility] 9 09:08:40 Hypertensi ve disorder 81106919 Active 2018 Enid zavala [facility] 9 09:08:55 Acid reflux 523364260 Active 2018 Jes Ferreira NP, S [address] [place] [address], [address], [facility] 9 15:17:03 Problem Notes None recorded. Procedures Surgical History Date Name Laterality Status Provider Name and Address Organization Details Recorded Time 09/27/19 16 arthroscopy of knee completed Jes Ferreira NP, S [address] [place] [address] [place], [address], [facility] 09/30/2018 09:57:31 Tubal Ligation completed Enid Kandi [facility] 09/30/2018 09:09:43 Imaging Results Imaging Date Name Status LastModified by Organiz ation Details LastModified Time 10/09/2018 MAMMO, screening, bilateral completed [address], [place], [address], 10/11/2018 05:44:19 Procedure Notes None recorded. Medical [...] Updated DateTime 9 161.29 cm 30.7 kg/m2 61434.5 4 g 63 /min 98 % 98 % 130 mm[Hg] 80 mm[Hg] Enid Chau [facility] 9 14:52:29 Social History Question Answer Notes LastModified by Organizat ion Details LastModified Time Tobacco Smoking Status Never Smoker Not Available [facility] 06/29/2020 03:36:24 What Was The Date Of Your Most Recent Tobacco Screening? 09/30/2018 [id number] Information not available 06/29/2020 Sex: Female Functional [...] Diagnosis/Indication Diagnosis SNOMED-CT Code Diagnosis ICD10 Code Diagnosis Note [id number] Jes Ferreira NP, S [facility] [address] [facility],[place] [address] 09/30/2018 14:41:11 09/30/2018 16:27:17 Adult health examination 132989059 Z00.01 Pt defers PAP Low back pain 481096029 M54.5 Acid reflux 613768035 K2 1.9 OTC omeprazole Hypertensive disorder 38 702062 I10 stable Anxiety 57244439 F41.9 discussed citalopram /prozac-pt to consider Vitamin D deficiency 347 71738 E55.9 Hyperglycemia 08630999 R 73.9 Screening procedure 2012 5006 Z13.9 Health Concerns Section Related Observation LastModified by Organization Detai ls LastModified Time None Recorded Concern Status LastModified by Organization Details LastModified Time None Recorded Advance Directives Directive None Recorded Payers Encounter Date Sequence Insurance Name Policy Number Policy Malin Covered Member ID Malin Member ID Guarantor Name 09/30/2018 1 [facility] [id number] Lois Santos [id number] Lois Santos Notes Date Note Type Note Provider Name a [place] Address Organization Details Recorded Time 9 text/html Annual WellnessReported bypatient.Diet and Nutrition:high caloric [...] 2) back pain-worse if lying prone Jes Ferreria NP, S [address] [place] [address], [address], [facility] 09/30/2018 16:02:27 OBGyn Episode No OBEpisode recorded.
== END 2024-10-17 11:46 | disposition home or self-care (01) ==
PROVIDERS: PCP Physician Assistant Medical; Visit Provider Internal Medicine
DX: S76.011A Strain of muscle, fascia and tendon of right hip, initial encounter (principal); M25.559 Pain in unspecified hip; M70.61 Trochanteric bursitis, right hip
CPT/HCPCS: 20551; 76942; 99213

== ENCOUNTER → 2024-10-17 10:52 | Outpatient (BNVA) | payer OTHER, SELFPAY | PROVIDERS: PCP Physician Assistant Medical; Visit Provider Internal Medicine | DX: S76.011A Strain of muscle, fascia and tendon of right hip, initial encounter (principal); M25.551 Pain in right hip; M54.12 Radiculopathy, cervical region | CPT/HCPCS: 20551; J2795 ==

== ENCOUNTER 2025-02-03 06:42 | Outpatient (REF) | payer OTHER, SELFPAY ==
[2025-02-03 07:18] LABS: Hematocrit 40.5 % (37.0-47.0); Hemoglobin 13.5 g/dl (12.0-16.0); Mean Corpuscular HGB Conc 33.3 g/dl (31.0-35.0); Mean Corpuscular Hemoglobin 30.2 pg (27.0-33.0); Mean Corpuscular Volume 90.6 fL (80.0-98.0); Mean Platelet Volume 8.6 fL (9.4-12.3); Platelet Count 234 X10*3/uL (160-400); Red Blood Count 4.47 X10*6/uL (4.20-5.50); Red Cell Distribution Width 12.6 % (11.0-16.0); White Blood Count 5.2 X10*3/uL (4.8-10.8)
[2025-02-03 07:46] LABS: Alanine Aminotransferase 30 U/L (0-31); Albumin Level 4.4 g/dL (3.5-5.0); Alkaline Phosphatase 45 U/L (39-117); Anion Gap 11 (12-20); Aspartate Amino Transferase 25 U/L (5-31); Bilirubin Total 0.4 mg/dL (0.0-1.0); Blood Urea Nitrogen 22 mg/dL (9-16); Calcium 9.8 mg/dL (8.4-10.2); Carbon Dioxide 26 mmol/L (22-29); Chloride 108 mmol/L (96-108); Cholesterol 245 mg/dL (<200); Estimated Glomerular Filt Rate > 60; Glucose Random 105 mg/dL (60-115); HDL Cholesterol 61 mg/dL (>40); LDL Cholesterol Calculated 156 mg/dL (<100); Potassium 4.4 mmol/L (3.3-5.1); Sodium 141 mmol/L (135-145); Total Protein 6.7 g/dL (6.5-8.0); Triglycerides 141 mg/dL (<150)
[2025-02-04 17:38] LABS: Follicle Stimulating Hormone 56.8 mIU/mL; Lutenizing Hormone 19.8 mIU/mL
[2025-02-07 19:38] LABS: Estrogen 59 pg/mL
[2025-02-09 01:19] LABS: VITAMIN D (1,25 OH) D3 31 pg/mL; Vit D (1,25-Dihydroxy) Total 31 pg/mL (18-72); Vitamin D (1,25 OH) D2 <8 pg/mL
== END 2025-02-03 06:43 | disposition home or self-care (01) ==
LOC: HO.LAB 06:42
PROVIDERS: PCP Physician Assistant Medical; Visit Provider Physician Assistant Medical
DX: Z00.00 Encounter for general adult medical examination without abnormal findings (principal); Z13.6 Encounter for screening for cardiovascular disorders; I10 Essential (primary) hypertension; E55.9 Vitamin D deficiency, unspecified; E78.5 Hyperlipidemia, unspecified; M13.80 Other specified arthritis, unspecified site
CPT/HCPCS: 36415; 80053; 80061; 82652; 82672; 83001; 83002; 85027

== ENCOUNTER 2025-02-05 08:44 | Outpatient (AMB) | payer OTHER, SELFPAY ==
--- NOTE | 2025-02-05 08:50 | A.OFFPC_ITS ---
Vital Signs 02/05/25 08:54 Height 5 ft 3 in Weight 181 lb 6 oz BMI 32.1 BP 116/64 Blood Pressure Location Lt brachial Position Sitting Pulse 83 Pulse Source Pulse Oximeter Temp 98.7 F Temp Source Temporal Artery Scan Pulse Oximetry (%) 98 Oxygen Delivery Method Room Air Intake Visit Reasons: med review Intake Note: Lois presents in the office for a medication review. Allergies No Known Allergies Allergy (Verified 02/05/25 08:53) Tobacco use date assessed: 02/05/25 Dental Screening Dental Screen Date: 02/05/25 Did you have a dental visit in the last 12 months?: No Did you have a dental problem in the last 6 months where you did not have access to dental care?: No Was dental information given to patient?: Patient declined HPI HPI Comments History of Present Illness Details This is a 69-year-old female with a past medical history of GERD, degenerative disc disease of the lumbar and cervical spine and hypertension presenting for follow up. PHQ-9 is positive. She endorses feeling some depression. Some of this is due to chronic pain. She has chronic right-sided gluteal muscle pain which began after a fall last summer. She was initially treated with a cortisone injection and then physical therapy. She trialed Flexeril. Seen by orthopedics. Currently on duloxetine 30 mg a day. Having difficulty sleeping. Tried melatonin and Tylenol with Benadryl at night. She has hyperlipidemia. We reviewed the results of her available lab tests. CBC, electrolytes, renal function, liver function normal. LDL cholesterol is 156, HDL 61 and triglycerides 141. Her fasting glucose level is 105. Endorses weight gain. She tried low-cholesterol diet, eating more salads and fiber, avoiding juice and soda. She drinks alcohol and says her diet could use improvement. She can not exercise as much due to chronic pain. Reports having 3 episodes within the past 6 months which worry her. Patient says the 1st time it happened she was reaching up to a shelf and she felt both of her arms go numb and heavy and weak. [place] breathless but was still breathing and functioning. Denies facial droop, slurred speech, facial numbness or tingling, syncope, dizziness, chest pain or palpitations. It happened another time when she was just standing, and another time when she was stirring aa pot while cooking. No exertional symptoms. Denies headaches or vision changes. She takes Celebrex 200 mg daily. Hypertension is treated with amlodipine. This is well-controlled. ROS: Constitutional: No unexplained weight loss, fever, chills or night sweats. Eyes: No vision changes, blurry vision, double vision, eye pain, eye redness, eye discharge. ENT: No hearing loss, sneezing, congestion, runny nose or sore throat. Respiratory: No shortness of breath, cough or sputum production. Cardiovascular: No chest pain, chest pressure or chest discomfort. No palpitations or pedal edema. Gastrointestinal: No anorexia, nausea, vomiting or diarrhea. No abdominal pain or blood in stool. Genitourinary: No dysuria, hematuria, urinary frequency. Neurologic: No headache, dizziness, syncope, tremors, seizures, memory loss, blackouts. See HPI. No ataxia. Musculoskeletal: see HPI Hematologic/Lymphatics: No bleeding or bruising. No painful lymph nodes. Endocrine: No cold or heat intolerance. No polyuria or polydipsia. Psychiatric: No SI/HI. PE: Constitutional: Alert, in no distress. Head: Normocephalic. Eyes: Pupils are equal, round and reactive to light. Extraocular muscles intact. Ear, Nose and Throat: Canals clear. TMs normal. Normal nasal mucosa. No nasal discharge. No oral lesions. Neck: Supple, Full range of motion. No lymphadenopathy. No palpable thyroid masses. Respiratory: Clear to auscultation. Cardiovascular: S1 S2 regular. No murmurs. Gastrointestinal: Abdomen soft, non-tender, non-distended. Normal bowel sounds. No palpable masses. Neurologic:?Alert and oriented x 3, no focal deficits observed, CN 2-12 intact, [id number] normal, sensation equal and symmetric, strength UE and LE 5/5 bilaterally, reflexes equal and symmetric.? Normal gait.? Patient able to heel walk, toe walk and walk heel-to-toe across the floor.? No pronator drift.? Negative Romberg. Skin: No rashes Musculoskeletal: No gross deformities. Extremities: Warm and well perfused. No clubbing, cyanosis or edema. Intact radial pulses. Psychiatric: Normal mood and affect [facility] Medical History (Updated 02/05/25 @ 17:01 by TUCKER Fan) Obesity Hypercholesterolemia Depression Chronic pain Weakness of both upper extremities Neck pain Numbness and tingling of upper and lower extremities of both sides Routine physical examination Tear of left gluteus medius tendon Tear of left gluteus minimus tendon Tear of gluteus minimus tendon Tear of right gluteus medius tendon GERD (gastroesophageal reflux disease) Vitamin D deficiency Obesity, Class I, BMI 30-34.9 Lumbar spondylosis Headache Arthritis Anxiety Left otitis media Essential hypertension Cervical disc disorder Lumbago Family History Other Alcohol abuse FH: mental illness Substance abuse Social History (Updated 02/05/25 @ 08:54 by Yvonne Gil MA) Housing: House Alcohol intake: current Patient Tobacco Use Status: Never used Tobacco e-Cigarette/Vaping Use: Never Used Second Hand Smoke Exposure: No Use of substances other than those prescribed or required for medical reasons: No service: No Current occupational status: employed 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 1. Little interest or pleasure in doing things: not at all 2. Feeling down, depressed, or hopeless: not at all 3. Trouble falling or staying asleep, or sleeping too much: nearly every day 4. Feeling tired or having little energy: more than half the days 5. Poor appetite or overeating: several days 6. Feeling bad about yourself - or that you are a failure or have let yourself or your family down: not at all 7. Trouble concentrating on things, such as reading the newspaper or watching television: not at all 8. Moving or speaking so slowly that other people could have noticed. Or the opposite - being so fidgety or restless that you have been moving around a lot more than usual: not at all 9. Thoughts that you would be better off or of hurting yourself in some way: not at all Total score: 6 Depression Screening Interpretation: Positive Depression Screening Follow-up: Change in Medication (See HPI) Depression Screening Done: Yes 13478 - PHQ-9 Billing: Yes Source: Developed by Drs. David Kruger, Anastasia Leo, Daquan Arteaga and colleagues, with an educational eben from [employer]. Thrive Questionnaire Date Thrive assessed: 02/05/25 I am a: Patient What is your living situation today?: I have a steady place to live Within the past 12 months, did the food you bought not last and you didn't have the money to get more?: Never true Within the past 12 months, did you worry whether your food would run out before you got money to buy more?: Never true Do you have trouble paying for medicines?: No Do you have trouble getting transportation to medical appointments?: No Do you have trouble paying your heating and electricity bill?: No Do you have trouble taking care of your child, family member or friend?: No Do you have trouble with day-to-day activities such as bathing, preparing meals, shopping, managing finances, etc.?: No Are you currently unemployed and looking for a job?: No Are you interested in more education?: No Please select the resources that you would like help with: None Currently or been in a relationship where the following occur: No concerns reported THRIVE Score: 0 AUDIT C Alcohol Use Questionnaire (AUDIT-C) 1. How often do you have a drink containing alcohol?: 2-4 times a month 2. How many drinks containing alcohol do you have on a typical day when you are drinking?: 1 or 2 3. How often do you have six or more drinks on one occasion?: Never Total Score: 2 Score Reviewed/Action Taken: No WILLIAMS-7 AMB Questionnaire WILLIAMS-7 Date WILLIAMS - 7 assessed: 02/05/25 Feeling nervous, anxious, or on edge: 1 = Several days Not being able to stop or control worryin = Several days Worrying too much about different things: 1 = Several days Trouble relaxin = More than half the days Being so restless that it is hard to sit still: 1 = Several days Becoming easily annoyed or irritable: 1 = Several days Feeling afraid as if something awful might happen: 0 = Not at all Total WILLIAMS-7 score (0-4 normal; 5-9 mild; 10-14 moderate; 15-21 severe): 7 Source: Developed by Drs. David Kruger, Daquan Dubon and colleagues, with an educational eben from [employer] WILLIAMS-7 Assessment Billing WILLIAMS-7 Assessment Tool: WILLIAMS-7 Assessment 24721 Physical exam (Primary Care) Vital Signs: Last Vital Signs Temp 98.7 F 02/05/25 08:54 Pulse 83 02/05/25 08:54 BP 116/64 02/05/25 08:54 Pulse Ox 98 02/05/25 08:54 Oxygen Delivery Method Room Air 02/05/25 08:54 BMI result Body Mass Index 32.1 Tobacco/Smoking Status: Tobacco use Status Tobacco use date assessed 02/05/25 02/05/25 08:51 Patient Tobacco Use Status Never used Tobacco 02/05/25 08:54 e-Cigarette/Vaping Use Never Used 02/05/25 08:54 PHQ-9: PHQ-9 Score PHQ-9: Total score 6 02/05/25 09:17 Depression Screening Interpretation: Positive Depression Screening Follow-up: Change in Medication (See HPI) Thrive Assessment: Date of Thrive Assessment Date Thrive assessed 02/05/25 02/05/25 08:51 Currently or been in a relationship where the following occur: No concerns reported Office Procedures EKG Details: EKG shows normal sinus rhythm and a ventricular rate of 76 beats per minute 86800-Lrggbulaoatlnvtkp, Complete Coding Level of Care Code Est Pt Level 5 (10197) Complex EM visit Add On G2211 Diagnoses Numbness and tingling of upper and lower extremities of both sides R20.0; R20.2 Neck pain M54.2 Essential hypertension I10 Chronic pain G89.29 Depression F32.A Weakness of both upper extremities R29.898 Hypercholesterolemia E78.00 Obesity E66.9 CPT Codes EKG - CPT: 73445-Kdvbwknvglujnxsgu, Complete ([id number]) Additional Codes WILLIAMS-7 Assessment Billing - WILLIAMS-7 Assessment Tool: WILLIAMS-7 Assessment 27321 ([id number]) PHQ-9 - 79887 - PHQ-9 Billing: Yes ([id number]) Time Spent (min) 45 Comment Direct patient care and completing documentation Assessment & Plan Assessment & Plan (1) Numbness and tingling of upper and lower extremities of both sides: Code(s): R20.0 - Anesthesia of skin; R20.2 - Paresthesia of skin Category: Medical (2) Neck pain: Code(s): M54.2 - Cervicalgia Category: Medical (3) Essential hypertension: Code(s): I10 - Essential (primary) hypertension Category: Medical (4) Chronic pain: Code(s): G89.29 - Other chronic pain Category: Medical (5) Depression: Code(s): F32.A - Depression, unspecified Category: Medical (6) Weakness of both upper extremities: Code(s): R29.898 - Other symptoms and signs involving the musculoskeletal system Category: Medical (7) Hypercholesterolemia: Code(s): E78.00 - Pure hypercholesterolemia, unspecified Category: Medical (8) Obesity: Code(s): E66.9 - Obesity, unspecified Category: Medical Plan Patient thinks episodes of bilateral upper extremity numbness and weakness may be due to degenerative disc disease and nerves in her neck getting compressed and triggering a vagal response. This is a possibility but I would like to proceed with the additional evaluation with MRI of the head and cervical spine to rule out high-grade stenosis or brain or spinal lesion causing compression. She is agreeable to this. Symptoms would be atypical for angina, but given risk factors for cardiovascular disease I ordered an EKG today to err on the side of caution, and this is normal. Warning signs warranting ER evaluation reviewed with the patient. Continue Celebrex and increase duloxetine for chronic pain and depression to 60 mg a day. Trial of trazodone 25-50 mg at bedtime for insomnia. Sleep hygiene reviewed. Reviewed strategies for weight loss. Discussed GLP 1. She denies contraindications to it. We discussed titration schedule and potential side effects. She would like to defer this for now but will contact me if she changes her mind for the prescription. Blood pressure is well-controlled. Continue amlodipine. Hyperlipidemia-ASCVD risk score is 8.9%. Recommended Mediterranean diet, decreasing alcohol, exercising as tolerated and following a low-cholesterol diet. She can try lifestyle modification short term, but ultimately she would likely benefit from starting a statin for cardiovascular risk reduction. Follow up in 3 months. Orders: Orders MR cervical spine wo con Today M50.90 - Cervical disc disorder, unspecified, unspecified cervical region, M54.2 - Cervicalgia, R20.0 - Anesthesia of skin, R20.2 - Paresthesia of skin, R29.898 - Other symptoms and signs involving the musculoskeletal system AMB EKG-In Office Today M54.2 - Cervicalgia, R20.0 - Anesthesia of skin, R20.2 - Paresthesia of skin MR head/brain wo con Today M54.2 - Cervicalgia, R20.0 - Anesthesia of skin, R20.2 - Paresthesia of skin, R29.898 - Other symptoms and signs involving the musculoskeletal system Medications: New 2 duloxetine 60 mg PO DAILY 90 caps 3RF trazodone 25 - 50 mg (0.5 - 1 x 50 mg) PO BEDTIME PRN 60 tabs 0RF sleep Refilled amlodipine 5 mg PO DAILY 90 tabs 3RF celecoxib (Celebrex) 200 mg PO DAILY 90 caps 3RF Discontinued duloxetine Discontinued Reason: Doctor's Order 30 mg PO DAILY 90 caps 3RF
[2025-02-05 08:54] VITALS: BP 116/64; PULSE 83; TEMP 37.1; O2SAT 98; BMI 32.1
--- OUTSIDE RECORDS SUMMARY | 2025-02-05 09:08 | XMS_ITS | Data Portability ---
Author Organization [facility], Telehealth Patient Home Address [address] [place] [address] Assessment No assessment recorded. Plan of Treatment Reminders Order Date Submit Date Provider Last Modified By Organization Details Last Modified Time Details Appointments None recorded. Lab glycohemogl obin, total, blood 2018 019 [facility], [address] [place] [address], [facility] D, [place], [address], 9 07:41:53 CMP, serum or plasma 2018 019 [facility], [address] [place] [address] D, [place], [address], 9 07:41:53 CBC 2018 019 [facility], [address] [place] [address], [place], [address], 9 07:41:53 lipids, total, serum 2018 019 [facility], [address] [place] [address], [facility] [address], [place], [address], 9 07:41:53 vitamin D, 25-hydroxy, total, serum 2018 019 [facility], [address] [place] [address], [facility] [address], [place], [address], 9 07:41:53 colon cancer screening, stool 2018 019 [facility], [address] [facility], [place], [address], 9 18:03:49 TSH + T4, serum 2018 [facility], [address] [facility], [place], [address], 9 16:01:44 urinalysis, dipstick 2018 [facility], [address] [facility], [place], [address], 9 16:01:44 hepatitis C panel, serum 2018 [facility], [address] [facility], [place], [address], 9 16:01:44 Referral None recorded. Procedures None recorded. Surgeries None recorded. Imaging XR, lumbosacral spine 2018 [place] Not available 9 08:39:11 MAMMO, screening, bilateral 2018 [facility], [address] [facility], [place], [address], 9 16:49:53 Medication Orders None recorded. Patient TargetsNo targets recorded. Patient InstructionsNo instructions recorded. Reason for Referral None Reported. Results Created Date Observation Date Name Description Value Unit Range Abnormal Flag Note LastModifiedBy Organization Detail LastModifiedTime 09/30/1909/30/2018 urina lysis , dipst ick Leukocytes Negati ve Not Available [facility] [address], [place], [address], 09/30/2018 14:55:21 09/30/19 19 09/30/2018 urina lysis , dipst ick Nitrite negati ve Not Available [facility] [address] [facility] [address], [place], [address], 09/30/2018 14:55:21 09/30/1909/30/2018 urina lysis , dipst ick Urobilinogen .2 Not Available [facility] [address] [facility], [place], [address], 09/30/2018 14:55:21 09/30/1909/30/2018 urina lysis , dipst ick Protein Negati ve Not Available [address], [place], [address], 09/30/2018 14:55:21 09/30/1909/30/2018 urina lysis , dipst ick pH 5.0 Not Available [address], [place], [address], 09/30/2018 14:55:21 09/30/1909/30/2018 urina lysis , dipst ick Blood Non-He molyze d: Trace Not Available [address], [place], [address], 09/30/2018 14:55:21 09/30/1909/30/2018 urina lysis , dipst ick Specific [place] 1.030 Not Available [address], [place], [address], 09/30/2018 14:55:21 09/30/1909/30/2018 urina lysis , dipst ick Ketone Negati ve Not Available [address], [place], [address], 09/30/2018 14:55:21 09/30/1909/30/2018 urina lysis , dipst ick Bilirubin Negati ve Not Available [address], [place], [address], 09/30/2018 14:55:21 09/30/1909/30/2018 urina lysis , dipst ick Glucose Negati ve Not Available [facility] [address] [facility] [address], [place], [address], 09/30/2018 14:55:21 09/30/1909/30/2018 urina lysis , dipst ick Appearance Clear Not Available [facility] [address] [facility] [address], [place], [address], 09/30/2018 14:55:21 09/30/1909/30/2018 urina lysis , dipst ick Color Pale Yellow Not Available [address], [place], [address], 09/30/2018 14:55:21 10/10/1910/09/2018 MAMMO , scree tish, bilat eral No observ ation record ed. [address], [place], [address], 10/11/2018 05:44:19 Result Notes None recorded. Problems Name Problem SNOMED Code Status Onset Date Resolution Date Notes Provider Name and Address Organization Details Recorded Time Anxiety 17661865 Active 2018 Enid zavala [facility] 9 09:08:40 Hypertensi ve disorder 91642026 Active 2018 Enid zavala [facility] 9 09:08:55 Acid reflux 871107118 Active 2018 Jes Ferreira NP, S [address] [place] [address], [address], [facility] 9 15:17:03 Problem Notes None recorded. Procedures Surgical History Date Name Laterality Status Provider Name and Address Organization Details Recorded Time 09/27/19 16 arthroscopy of knee completed Jes Ferreira NP, S [address] [place], [address], [facility] 09/30/2018 09:57:31 Tubal Ligation completed Enidamaris Chau [facility] 09/30/2018 09:09:43 Imaging Results None recorded. Procedure Notes None recorded. Medical Equipment None [...] Updated DateTime 9 161.29 cm 30.7 kg/m2 89460.5 4 g 63 /min 98 % 98 % 130 mm[Hg] 80 mm[Hg] Enidamaris Chau [facility] 9 14:52:29 Social History Question Answer Notes LastModified by Organizat ion Details LastModified Time Tobacco Smoking Status Never Smoker Not Available [facility] 06/29/2020 03:36:24 What Was The Date Of Your Most Recent Tobacco Screening? 09/30/2018 [id number] Information not available 06/29/2020 Sex: Female Functional [...] SNOMED-CT Code Diagnosis ICD10 Code Diagnosis Note [id number] DO [facility] [address] [facility],[place] [address] 09/30/2018 14:41:11 09/30/2018 16:27:17 Adult health examination 719097370 Z00.01 Pt defers PAP Low back pain 358770203 M54.5 Acid reflux 871071114 K2 1.9 OTC omeprazole Hypertensive disorder 38 314304 I10 stable Anxiety 48081044 F41.9 discussed citalopram /prozac-pt to consider Vitamin D deficiency 347 72019 E55.9 Hyperglycemia 31826051 R 73.9 Screening procedure 2012 5006 Z13.9 Health Concerns Section Related Observation LastModified by Organization Detai ls LastModified Time None Recorded Concern Status LastModified by Organization Details LastModified Time None Recorded Advance Directives Directive None Recorded Payers Insurance Date Sequence Insurance Name Policy Number Policy Malin Covered Member ID Malin Member ID Guarantor Name 09/30/2018 1 [facility] [id number] Lois Santos [id number] Lois Santos Notes Date Note Type Note Provider Name a me Address Organization Details Recorded Time 9 text/html [...] if lying prone Jes Ferreira NP, S [address] [facility], [place], [address], [facility] 09/30/2018 16:02:27 OBGyn Episode No OBEpisode recorded.
== END 2025-02-05 11:21 | disposition home or self-care (01) ==
LOC: HO.HMCFM 08:45
PROVIDERS: PCP Physician Assistant Medical; Visit Provider Physician Assistant Medical
DX: R20.0 Anesthesia of skin (principal); R20.2 Paresthesia of skin; E66.9 Obesity, unspecified; Z68.32 Body mass index [BMI] 32.0-32.9, adult; M54.2 Cervicalgia; I10 Essential (primary) hypertension; G89.29 Other chronic pain; F32.A Depression, unspecified; R29.898 Other symptoms and signs involving the musculoskeletal system; E78.00 Pure hypercholesterolemia, unspecified

== ENCOUNTER → 2025-02-05 08:44 | Outpatient (BNVA) | payer OTHER, SELFPAY | PROVIDERS: PCP Physician Assistant Medical; Visit Provider Physician Assistant Medical | DX: R20.0 Anesthesia of skin (principal); R20.2 Paresthesia of skin; M54.2 Cervicalgia; I10 Essential (primary) hypertension; G89.29 Other chronic pain; F32.A Depression, unspecified; R29.898 Other symptoms and signs involving the musculoskeletal system; E78.00 Pure hypercholesterolemia, unspecified; E66.9 Obesity, unspecified; Z68.32 Body mass index [BMI] 32.0-32.9, adult; Z13.31 Encounter for screening for depression; Z13.30 Encounter for screening examination for mental health and behavioral disorders, unspecified | CPT/HCPCS: 93005; 96127 ==

== ENCOUNTER → 2025-02-18 17:32 | Outpatient (BNV) | payer OTHER, SELFPAY | PROVIDERS: PCP Physician Assistant Medical; Visit Provider Radiology Diagnostic Radiology | DX: M47.812 Spondylosis without myelopathy or radiculopathy, cervical region (principal); M48.02 Spinal stenosis, cervical region; R90.82 White matter disease, unspecified | CPT/HCPCS: 70551; 72141 ==

== ENCOUNTER 2025-02-18 17:36 | Outpatient (REF) | payer OTHER, SELFPAY ==
--- NOTE | ~2025-02-18 | MR_ITS ---
EXAMINATION: MR BRAIN WITHOUT CONTRAST CLINICAL INFORMATION: Headache. Other symptoms and signs involving the musculoskeletal system. COMPARISON: None available. TECHNIQUE: MRI of the brain was obtained using routine sequences without contrast. FINDINGS: No restricted diffusion. No acute intracranial hemorrhage, mass effect, midline shift, hydrocephalus or herniation. Dela Cruz-white matter differentiation is normal. There is patchy subcentimeter deep periventricular white matter and subcortical white matter hyperintense T2 FLAIR signal involving centrum semiovale and page radiata and the right frontal pole. Posterior cranial fossa contents demonstrated no signal abnormality or masses. Flow-void signal within the main cerebral vessels is normal. Sellar/suprasellar region demonstrated no signal abnormality or gross masses. Craniocervical junction demonstrates normal position of the cerebellar tonsils. Midline structures are normal. MR/MR head/brain wo con IMPRESSION: No acute stroke/nonhemorrhagic ischemia. White matter T2 FLAIR signal, nonspecific. Recommend follow-up in the short period time (3 6 month). Electronically signed by: Christiano Hyde MD 02/19/2025 07:21 AM EDT
--- NOTE | ~2025-02-18 | MR_ITS ---
EXAMINATION: MR CERVICAL SPINE WITHOUT CONTRAST CLINICAL INFORMATION: Other symptoms and signs involving the musculoskeletal system. COMPARISON: None available. TECHNIQUE: MRI of the cervical spine was obtained using routine sequences without contrast. FINDINGS: Craniocervical junction is intact. There is a subtle bone marrow STIR signal in the endplates of C5-6. Marginal osteophyte formation, decreased disc signal and height at C5-6 and C6-7 levels. There is a grade 1 retrolisthesis C5-6. There is a grade 1 anterolisthesis C4-5. There is a reverse curvature apex at C5-6. Cervical spinal cord signal is normal. C2-3: No disc herniation. No neuroforamina stenosis. C3-4: No disc herniation. Left neuroforamina narrowing on a degenerative basis. C4-5: Left-sided disc osteophyte compresses formation resulting in ventral indentation to the thecal sac and left neuroforamina and stenosis. Left facet joint hypertrophy. Reduced AP diameter of the thecal sac. No cord compression. C5-6: Broad-based disc osteophyte complex formation resulting in ventral deformity of the thecal sac. No cord compression. Bilateral neuroforamina narrowing. C6-7: Broad-based disc osteophyte compresses formation resulting in ventral deformity of the thecal sac. No cord compression. No neuroforamina stenosis. C7-T1: No disc herniation. No neuroforamina stenosis. No prevertebral compartment hematoma, mass or fluid collection. Flow-void signal within the main vessels is normal. Codominant vertebral arteries. Nonspecific prominent cervical lymph nodes. MR/MR cervical spine wo con IMPRESSION: Cervical spondylosis C5-6 and C6-7 with a reverse curvature apex at C5-6 resulting in central spinal canal stenosis without cord compression, cord edema and or myelopathy. Left neuroforamina and stenosis at C4-5 and mild central spinal canal stenosis on a degenerative basis. Central spinal canal stenosis at C6-7 without cord compression. Electronically signed by: Christiano Hyde MD 02/19/2025 07:41 AM EDT
--- OUTSIDE RECORDS SUMMARY | 2025-02-18 18:56 | XMS_ITS | Data Portability ---
Author Organization [facility], Telehealth Patient Home Address [address] [place] [address] Assessment No assessment recorded. Plan of Treatment Reminders Order Date Submit Date Provider Last Modified By Organization Details Last Modified Time Details Appointments None recorded. Lab glycohemogl obin, total, blood 2018 019 [facility], [address] [place] [address], [address], [place], [address], 9 07:41:53 CMP, serum or plasma 2018 019 [facility], [address] [place] [address], [facility] [address], [place], [address], 9 07:41:53 CBC 2018 019 [facility], [address] [place] [address], [facility] [address], [place], [address], 9 07:41:53 lipids, total, serum 2018 019 [facility], [address] [place] [address], [address], [place], [address], 9 07:41:53 vitamin D, 25-hydroxy, total, serum 2018 019 [facility], [address] [place] [address], [address], [place], [address], 9 07:41:53 colon cancer screening, stool 2018 019 [facility], [address] [facility], [address], [place], [address], 9 18:03:49 TSH + T4, serum 2018 019 [facility], [address] [facility], [address], [place], [address], 9 16:01:44 urinalysis, dipstick 2018 019 [facility], [address] [place] [address], [address], [place], [address], 9 16:01:44 hepatitis C panel, serum 2018 019 [facility], [address] [facility], [address], [place], [address], 9 16:01:44 Referral None recorded. Procedures None recorded. Surgeries None recorded. Imaging XR, lumbosacral spine 2018 cedric Not available 9 08:39:11 MAMMO, screening, bilateral 2018 [facility] Scheduling, [address] [facility], [place], [address], 9 16:49:53 Medication Orders None recorded. Patient TargetsNo targets recorded. Patient InstructionsNo instructions recorded. Reason for Referral None Reported. Results Created Date Observation Date Name Description Value Unit Range Abnormal Flag Note LastModifiedBy Organization Detail LastModifiedTime 09/30/1909/30/2018 urina lysis , dipst ick Leukocytes Negati ve Not Available [facility] [address], [place], [address], 09/30/2018 14:55:21 09/30/19 19 09/30/2018 urina lysis , dipst ick Nitrite negati ve Not Available [facility] [address] [facility] [address], [place], [address], 09/30/2018 14:55:21 09/30/1909/30/2018 urina lysis , dipst ick Urobilinogen .2 Not Available [facility] [address] [facility] [address], [place], [address], 09/30/2018 14:55:21 09/30/1909/30/2018 urina lysis , dipst ick Protein Negati ve Not Available [address], [place], [address], 09/30/2018 14:55:21 09/30/1909/30/2018 urina lysis , dipst ick pH 5.0 Not Available [address], [place], [address], 09/30/2018 14:55:21 09/30/1909/30/2018 urina lysis , dipst ick Blood Non-He molyze d: Trace Not Available [address], [place], [address], 09/30/2018 14:55:21 09/30/1909/30/2018 urina lysis , dipst ick Specific [place] 1.030 Not Available [address], [place], [address], 09/30/2018 14:55:21 09/30/1909/30/2018 urina lysis , dipst ick Ketone Negati ve Not Available [address], [place], [address], 09/30/2018 14:55:21 09/30/1909/30/2018 urina lysis , dipst ick Bilirubin Negati ve Not Available [address], [place], [address], 09/30/2018 14:55:21 09/30/1909/30/2018 urina lysis , dipst ick Glucose Negati ve Not Available [facility] [address] [facility] [address], [place], [address], 09/30/2018 14:55:21 09/30/1909/30/2018 urina lysis , dipst ick Appearance Clear Not Available [facility] [address] [facility] [address], [place], [address], 09/30/2018 14:55:21 09/30/1909/30/2018 urina lysis , dipst ick Color Pale Yellow Not Available [address], [place], [address], 09/30/2018 14:55:21 10/10/1910/09/2018 MAMMO , scree tish, bilat eral No observ ation record ed. [address], [place], [address], 10/11/2018 05:44:19 Result Notes None recorded. Problems Name Problem SNOMED Code Status Onset Date Resolution Date Notes Provider Name and Address Organization Details Recorded Time Anxiety 63798207 Active 2018 Enid zavala [facility] 9 09:08:40 Hypertensi ve disorder 19593054 Active 2018 Enid zavala [facility] 9 09:08:55 Acid reflux 037486161 Active 2018 eJs Frereira NP, [address] [place] [address], [address], [facility] 9 15:17:03 Problem Notes None recorded. Procedures Surgical History Date Name Laterality Status Provider Name and Address Organization Details Recorded Time 09/27/19 16 arthroscopy of knee completed Jes Ferreira NP, [address] [place], [address], [facility] 09/30/2018 09:57:31 Tubal Ligation completed Enidamaris hCau [facility] 09/30/2018 09:09:43 Imaging [...] Updated DateTime 9 161.29 cm 30.7 kg/m2 88792.5 4 g 63 /min 98 % 98 % 130 mm[Hg] 80 mm[Hg] Enidamaris Chau [facility] 9 14:52:29 Social History Question Answer Notes LastModified by Organizat ion Details LastModified Time Tobacco Smoking Status Never Smoker Not Available [facility] 06/29/2020 03:36:24 What Was The Date Of Your Most Recent Tobacco Screening? 09/30/2018 [id number] Information not available 06/29/2020 Sex: Female Functional [...] SNOMED-CT Code Diagnosis ICD10 Code Diagnosis Note [id number] DO [facility] [address] [facility],[place] [address] 09/30/2018 14:41:11 09/30/2018 16:27:17 Adult health examination 126071669 Z00.01 Pt defers PAP Low back pain 625539795 M54.5 Acid reflux 788156494 K2 1.9 OTC omeprazole Hypertensive disorder 38 884615 I10 stable Anxiety 43030697 F41.9 discussed citalopram /prozac-pt to consider Vitamin D deficiency 347 05535 E55.9 Hyperglycemia 79606648 R 73.9 Screening procedure 2012 5006 Z13.9 Health Concerns Section Related Observation LastModified by Organization Detai ls LastModified Time None Recorded Concern Status LastModified by Organization Details LastModified Time None Recorded Advance Directives Directive None Recorded Payers Insurance Date Sequence Insurance Name Policy Number Policy Malin Covered Member ID Malin Member ID Guarantor Name 09/30/2018 1 [facility] [id number] Lois Santos [id number] Lois Santos Notes Date Note Type Note Provider Name a nd Address Organization Details Recorded Time 9 text/html [...] lying prone Jes Ferreira NP, [address] [facility], [place], [address], [facility] 09/30/2018 16:02:27 OBGyn Episode No OBEpisode recorded.
== END 2025-02-18 17:37 | disposition home or self-care (01) ==
LOC: HO.MRI 17:36
PROVIDERS: PCP Physician Assistant Medical; Visit Provider Physician Assistant Medical
DX: R29.898 Other symptoms and signs involving the musculoskeletal system (principal); R20.0 Anesthesia of skin; R20.2 Paresthesia of skin; M50.90 Cervical disc disorder, unspecified, unspecified cervical region
CPT/HCPCS: 70551; 72141

== ENCOUNTER 2025-06-15 17:40 | Outpatient (REF) | payer OTHER, SELFPAY ==
--- NOTE | ~2025-06-15 | MR_ITS ---
EXAMINATION: MR BRAIN WITHOUT CONTRAST CLINICAL INFORMATION: R 90.89. Abnormal findings on diagnostic imaging of the central nervous system. COMPARISON: February 18, 2025. TECHNIQUE: MRI of the brain was obtained using routine sequences without contrast. FINDINGS: No restricted diffusion. No acute intracranial hemorrhage, mass effect, midline shift, hydrocephalus or herniation. Dela Cruz-white matter differentiation is normal. Bilateral, a few, scattered, nonspecific subcortical deep white matter hyperintense T2 FLAIR signal involving mostly frontal lobes. Flow-void signal within the main cerebral vessels is normal. Posterior cranial fossa contents demonstrated no signal abnormality or gross mass effect. Sellar/suprasellar region is normal. Craniocervical junction demonstrates normal position of the cerebellar tonsils. Polypoid mucosal thickening and secretions, left maxillary sinus. MR/MR head/brain wo con IMPRESSION: No acute brain abnormality. Stable white matter T2 FLAIR signal. Acute on chronic left maxillary sinus disease. Recommend direct inspection. Electronically signed by: Christiano yHde MD 06/16/2025 07:16 AM EDT
--- OUTSIDE RECORDS SUMMARY | 2025-06-15 20:51 | XMS_ITS | Clinical Summary ---
Author Organization [facility] Address [address] [place] [phone] Phone Care Team Providers Care Smelter Operator Name Role Phone Pcp, Unknown Primary Care Provider Unavailabl e Allergies Active Allergy Reactions Criticality Noted Date Comments Lisinopril Cough Low 05/04/2021 Medications omeprazole (PRILOSEC) 20 MG capsule Take 1 capsule by mouth daily. Active cholecalciferol , vitamin D3, (VITAMIN D3 ORAL) Take 2,500 mcg by mouth daily. Active methylPREDNISol one (MEDROL DOSEPACK) 4 mg tablet as directed. 1 Active gabapentin (NEURONTIN) 300 MG capsule TAKE 1 TO 2 CAPSULES BY MOUTH EVERY NIGHT 1 Active LORazepam (ATIVAN) 0.5 MG tabletIndicatio ns:Anxiety Take 1 tablet (0.5 mg total) by mouth nightly at bedtime as needed. 30 tablet 2 Active methylPREDNISol one (MEDROL DOSEPACK) 4 mg tablet follow package directions 21 tablet 2 Active amLODIPine (NORVASC) 2.5 MG tabletIndicatio ns:Hypertensive disorder Take 1 tablet (2.5 mg total) by mouth daily. 90 tablet 3 Active meloxicam (MOBIC) 15 MG tablet TAKE 1 TABLET(15 MG) BY MOUTH DAILY 90 tablet 3 Active Active Problems Problem Noted Date Diagnosed Date Hypertensive disorder 09/30/2018 Anxiety 09/30/2018 Gastroesophageal reflux disease without esophagi tis 09/30/2018 Immunizations Immunization Administration Dates Next Due COVID-19 (Pre-06/18) Pfizer Vaccine, mRNA, PF ,08/15/2020 INFLUENZA, SPLIT VIRUS, TRIVALENT W/ PRESERVATIV E IM 06/23/2016 Influenza Quadrivalent Preservative Free IM 05/28,06/12/2018 Influenza Quadrivalent w/ Preservative IM 2017 Family History Medical History Relation Comments Atrial fibrillation Brother 1 Atrial fibrillation Brother 2 Abnormal EKG Daughter 1 Diabetes Father Hypertension Father Kidney failure Father Arthritis Mother Schizophrenia Son 1 Relation Status Comments Brother 1 Alive Brother 2 Alive Daughter 1 Alive Daughter 2 Alive Daughter 3 Alive Father Mother Alive Sister 1 Alive Sister 2 Alive Son 1 Alive Son 2 Alive Son 3 Alive Son 4 Alive Social History Tobacco Use Types Packs/Day Years Used Date Smoking Tobacco: Never Smokeless Tobacco: Never Alcohol Use Standard Drinks/Week Comments Yes 0 (1 standard drink = 0.6 oz pur e alcohol) 2-3 x month Child or Family Care Answer Date Record ed Do you have problems with on e of the following making it difficult for you to work, study, or receive health care? No 06/05/2021 Education Answer Date Recorded Are you interested in more education? Not on warren e 2023 Are you concerned about learning? Not on file 2023 No 2023 No 2023 Food Answer Date Recorded Within the past 6 months we worried whether our food would run out before we got money to buy more. Never True 06/05/2021 Within the past 6 months the food we bought just didn't last and we didn't have enough money to get more. Never True Residential Stability Answer Date Recor ded What is your housing situation today? I have troy matt 06/05/2021 How many times have you move d in the past 12 months? Zero (I did not move) 06/05/2021 Paying for Meds Answer Date Recorded Do you have trouble paying for medicines? No 06/05/2021 Paying Utility Bills Answer Date Record ed Do you have trouble paying your heating or elect ricity bill? No 06/05/2021 Transportation Answer Date Recorded Has the lack of transportati on kept you from medical appointments or from getting medications? No 06/05/2021 Unemployment Answer Date Recorded Are you currently unemployed or working on a part-time or temporary basis, and looking for work? No 06/05/2021 Digital Access Answer Date Recorded No 01/20/2023 No 01/20/2023 No 01/20/2023 Reliable internet access at home? Not on file 01/20/2023 Device with a working camera? Not on file Comments Unknown Sex and Gender Information Value Date Recorded Sex Assigned at Female 04/11/2021 7:01 AM EDT Legal Sex Female 9:37 AM EDT Gender Identity Female 04/11/2021 7:01 AM EDT Sexual Orientation Not on file Last Filed Vital Signs Vital Sign Reading Time Taken Comments Blood Pressure 134/74 06/08/2021 2:56 PM EDT Pulse 81 06/08/2021 2:56 PM EDT Temperature - - Respiratory Rate 16 06/08/2021 2:56 PM EDT Oxygen Saturation 96% 06/08/2021 2:56 PM EDT Inhaled Oxygen Concentration - - Weight 81.9 kg (180 lb 9.6 oz) 06/08/2021 2:56 P M EDT Height 161.3 cm (5' 3.5 ) 06/08/2021 2:56 PM EDT Body Mass Index 31.49 06/08/2021 2:56 PM EDT Plan of Treatment Health Maintenance Due Date Last Done Comments Adult Td,Tdap Booster 1955 BLOOD PRESSURE 1955 COLONOSCOPY 2001 FIT TEST 2001 FOBT 2001 SIGMOIDOSCOPY 2001 VIRTUAL COLONOSCOPY 2001 PNEUMOCOCCAL VACCINES (50+ years) (1 of 1 - PCV) 2006 ZOSTER VACCINES (1 of 2) 2006 OSTEOPOROSIS SCREENING INITIAL (ONE-TIME) 2021 COLOGUARD 11/13/2021 11/13/2018 COLORECTAL CANCER SCREENING 11/13/2021 DEPRESSION SCREENING 06/05/2022 06/05/2021 LIPID PANEL 10/03/2023 10/03/2018, 02/0 02/2019, 10/03/2018 MAMMOGRAM 11/09/2023 11/08/2021, 10/09/2018 INFLUENZA VACCINE (#1) 2025 , 06/17/2020, 06/12/2018, Additional history exists COVID-19 VACCINE (3 - 2024- season) 2025 09/05/2020, 08/15/2020 RSV VACCINE (1 - 1-dose 75+ series) 2031 HEPATITIS C SCREENING Completed 10/03/2018 SMOKING STATUS SCREENING (Once After 26 Yrs) Completed 06/12/2021 HEPATITIS A VACCINES Aged Out No long er eligible based on patient's age to complete this topic HIB VACCINES Aged Out No longer eligi ble based on patient's age to complete this topic MENINGOCOCCAL VACCINES (ACWY) Aged Out No longer eligible based on patient's age to complete this topic MENINGOCOCCAL VACCINES (B) Aged Out N o longer eligible based on patient's age to complete this topic Medical Devices Not on file Procedures Procedure Name Priority Date/Time Associated Diagnosis Comments MAMMOGRAPHY Routine 11/08/2021 OUTSIDE COLOGUARD Routine 11/13/2018 OUTSIDE HDL Routine 10/03/2018 OUTSIDE HEPATITIS C VIRUS SCREENING Routine 10/03/2018 from Last 3 Months or Most Recently Relevant to Health Maintenance Results * MAMMOGRAPHY FOR RESULT ENTRY ONLY (11/08/2021) [facility] Provider HEALTH MAINTENANCE Edited Result - Final * OUTSIDE COLOGUARD (11/13/2018) Outside Cologuard Neg [facility] Provider HEALTH MAINTENANCE Final Result * Outside Hepatitis C Virus Screening (10/03/2018) Hepatitis C Screening - External Neg Historical Provider LAB BLOOD ORDERABLES Eda l Result * Outside HDL (10/03/2018) HDL - External 54 40 - 80 mg/dL [facility] Provider LAB BLOOD ORDERABLES Eda l Result from Last 3 Months or Most Recently Relevant to Health Maintenance Insurance [employer] Care Teams Smelter Operator Relationship Specialty Start Date End Date Pcp, Unknown PCP - General 03/23/23 Additional Source Comments The information contained in this document represents components of the legal health record. It is not the complete legal health record.[facility]
== END 2025-06-15 17:41 | disposition home or self-care (01) ==
LOC: HO.MRI 17:40
PROVIDERS: PCP Physician Assistant Medical; Visit Provider Physician Assistant Medical
DX: R90.89 Other abnormal findings on diagnostic imaging of central nervous system (principal); R20.0 Anesthesia of skin; R20.2 Paresthesia of skin
CPT/HCPCS: 70551

== ENCOUNTER → 2025-06-15 17:40 | Outpatient (BNV) | payer OTHER, SELFPAY | PROVIDERS: PCP Physician Assistant Medical; Visit Provider Radiology Diagnostic Radiology | DX: J01.00 Acute maxillary sinusitis, unspecified (principal) | CPT/HCPCS: 70551 ==

== ENCOUNTER 2025-06-22 13:19 | Outpatient (AMB) | payer OTHER, SELFPAY ==
--- NOTE | 2025-06-22 13:21 | A.OFFVIS_ITS ---
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 she had a fall 2 years ago and developed pain in her back shooting down the right leg . she has tried PT and has been to pain management with no relief. she reports intermittent numbness and pain . she also reports feeling stiff in her her neck and numbness, tingling when she looks up or bends down . she denies weakness , denies any urinary issues. MRI brain showed nonspecific white matter change. MRI Coccyx showed a partial tear of gluteus medius and minimus [facility] Medical History (Updated 06/22/25 @ 14:17 by Ana Mendoza MD) Numbness and tingling of both upper extremities Abnormal brain MRI Impaired fasting glucose Obesity Hypercholesterolemia Depression Chronic pain Weakness of both upper extremities Neck pain Numbness and tingling of upper and lower extremities of both sides Routine physical examination Tear of left gluteus medius tendon Tear of left gluteus minimus tendon Tear of gluteus minimus tendon Tear of right gluteus medius tendon GERD (gastroesophageal reflux disease) Vitamin D deficiency Obesity, Class I, BMI 30-34.9 Lumbar spondylosis Headache Arthritis Anxiety Left otitis media Essential hypertension Cervical disc disorder Lumbago Family History Other Alcohol abuse FH: mental illness Substance abuse Social History (Reviewed 06/22/25 @ 13:22 by SELINA Leblanc Housing: House Alcohol intake: current Patient Tobacco Use Status: Never used Tobacco e-Cigarette/Vaping Use: Never Used Second Hand Smoke Exposure: No service: No Current occupational status: employed 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 Current occupational exposures/hazards: Yes Cognitive needs: No Hearing needs: No Vision needs: Yes Physical Exam Vital Signs: Last Vital Signs Pulse 102 H 06/22/25 13:22 BP 148/82 H 06/22/25 13:22 Pulse Ox 97 06/22/25 13:22 Oxygen Delivery Method Room Air 06/22/25 13:22 BMI result Body Mass Index 30.4 Const General: cooperative, healthy appearing, comfortable, no acute distress and well developed Nutritional Appearance: average body habitus Orientation/consciousness: patient oriented x3 Eyes Pupils: Equal, round and reactive pupils present Neuro Other: Neck - pippa splenius , levator stiffness, trapezius restricted range of motion General: patient oriented x3, gait normal, tone normal, moves all extremities and no focal motor deficits Cranial nerves: Yes Facial sensation intact/muscles of mastication intact, Yes Equal, round and reactive pupils present, Yes Bilaterally intact EOM present, Y es Nystagmus not present, Yes Normal facial strength present, Yes Midline tongue present, Yes Symmetric palate elevation present and Yes Ability to bilaterally elevate shoulders present Cognition (Neuro): normal cognition Gait exam (Neuro): Normal gait present Motor exam (neuro): 5/5 motor strength present throughout and Normal motor muscle tone present throughout Deep tendon reflexes (DTR's): Right triceps reflex intensity grade: 2+, Left triceps reflex intensity grade: 2+, Rt Biceps (C5, C6): 2+, Left biceps reflex intensity grade: 2+, Right brachioradialis reflex intensity grade: 2+, Left brachioradialis reflex intensity grade: 2+, Right patellar reflex intensity grade: 2+ and Left patellar reflex intensity grade: 2+ Coordination: [id number] test normal Results Reviewed Results Reviewed: MRI C spine- 02/18 Cervical spondylosis C5-6 and C6-7 with a reverse curvature apex at C5-6 resulting in central spinal canal stenosis without cord compression, cord edema and or myelopathy. Left neuroforamina and stenosis at C4-5 and mild central spinal canal stenosis on a degenerative basis. Central spinal canal stenosis at C6-7 without cord compression. MRI Coccyx- Normal sacrum and coccyx. 2. Minimal bilateral trochanteric bursitis. 3. Partial tearing of the distal gluteus medius and minimus tendons right greater than left. 4. Degenerative disc changes in the lower lumbar spine with findings similar to that noted on the prior MRI dated May 2021. Slight increased bulging of the L4-L5 disc. Assessment & Plan Assessment & Plan (1) Lumbago: Comment: spondylosis Code(s): M54.50 - Low back pain, unspecified Category: Medical Qualifiers: Chronicity: chronic Back pain laterality: bilateral Sciatica presence: without sciatica Qualified Code(s): M54.50 - Low back pain, unspecified; G89.29 - Other chronic pain (2) Neck pain: Comment: spondylosis C5-6, C6-7 Code(s): M54.2 - Cervicalgia Category: Medical (3) Abnormal brain MRI: Comment: non specific white matter changes Code(s): R90.89 - Other abnormal findings on diagnostic imaging of central nervous system Category: Medical (4) Numbness and tingling of upper and lower extremities of both sides: Comment: DJD Code(s): R20.0 - Anesthesia of skin; R20.2 - Paresthesia of skin Category: Medical (5) Numbness and tingling of both upper extremities: Comment: DJD Code(s): R20.0 - Anesthesia of skin; R20.2 - Paresthesia of skin Category: Medical Plan Will refer to pain management for second opinion Will consider BOTOX if she does not respond to other treatment modalities Reviewed MRI reports and images with her she has tried multiple muscle relaxers, gabapentin etc and does not want to trial a new medication today . MRI brain - white matter changes are sable / suggetsed risk factor modification and aspirin 81 mg qd. Orders: Referrals Pain Management Referral G89.29 - Other chronic pain, M25.559 - Pain in unspecified hip, M54.50 - Low back pain, unspecified, S76.011A - Strain of muscle, fascia and tendon of right hip, initial encounter, S76.012A - Strain of muscle, fascia and tendon of left hip, initial encounter, S76.019A - Strain of muscle, fascia and tendon of unspecified hip, initial encounter Coding Level of Care Code New Pt Level 4 (41960) Diagnoses Chronic bilateral low back pain without sciatica M54.50; G89.29 Chronicity: chronic Back pain laterality: bilateral Sciatica presence: without sciatica Neck pain M54.2 Abnormal brain MRI R90.89 Numbness and tingling of upper and lower extremities of both sides R20.0; R20.2 Numbness and tingling of both upper extremities R20.0; R20.2
[2025-06-22 13:22] VITALS: BP 148/82; PULSE 102; O2SAT 97; BMI 30.4
--- OUTSIDE RECORDS SUMMARY | 2025-06-22 16:54 | XMS_ITS | Clinical Summary ---
Author Organization [facility] Address [address] [place] [phone] Phone Care Team Providers Care Litigation Partner Name Role Phone Pcp, Unknown Primary Care [...] * MAMMOGRAPHY FOR RESULT ENTRY ONLY (11/08/2021) [facility] Provider HEALTH MAINTENANCE Edited Result - Final * OUTSIDE COLOGUARD (11/13/2018) Outside Cologuard Neg [facility] Provider HEALTH MAINTENANCE Final Result * Outside Hepatitis C Virus Screening (10/03/2018) Hepatitis C Screening - External Neg Historical Provider LAB BLOOD ORDERABLES Eda l Result * Outside HDL (10/03/2018) HDL - External 54 40 - 80 mg/dL [facility] Provider LAB BLOOD ORDERABLES Eda l Result from Last 3 Months or Most Recently Relevant to Health Maintenance Insurance [email or web address] Care Teams Litigation Partner Relationship Specialty Start Date End Date Pcp, Unknown PCP - General 03/23/23 Additional Source Comments The information contained in this document represents components of the legal health record. It is not the complete legal health record.[facility]
--- OUTSIDE RECORDS SUMMARY | 2025-06-22 16:54 | XMS_ITS | Data Portability ---
Author Organization [facility], Telehealth Patient Home Address [address] [place] [address] Assessment No assessment recorded. Plan of Treatment Reminders Order Date Submit Date Provider Last Modified By Organization Details Last Modified Time Details Appointments None recorded. Lab glycohemogl obin, total, blood 2018 019 [facility], [address] [place] [address], [address], [place], [address], 9 07:41:53 CMP, serum or plasma 2018 019 [facility], [address] [place] [address], [address], [place], [address], 9 07:41:53 CBC 2018 019 [facility], [address] [place] [address], [facility] [address], [place], [address], 9 07:41:53 lipids, total, serum 2018 019 [facility], [address] [place] [address], [address], [place], [address], 9 07:41:53 vitamin D, 25-hydroxy, total, serum 2018 019 [facility], [address] [place] [address], [address], [place], [address], 9 07:41:53 colon cancer screening, stool 2018 019 [facility], [address] [facility], [address], [place], [address], 9 18:03:49 TSH + T4, serum 2018 019 [facility], [address] [facility], [address], [place], [address], 9 16:01:44 urinalysis, dipstick 2018 019 [facility], [address] [place] [address], [address], [place], [address], 9 16:01:44 hepatitis C panel, serum 2018 019 [facility], [address] [facility], [address], [place], [address], 9 16:01:44 Referral None recorded. Procedures None recorded. Surgeries None recorded. Imaging XR, lumbosacral spine 2018 cedric Not available 9 08:39:11 MAMMO, screening, bilateral 2018 [facility], [address] [facility], [place], [address], 9 16:49:53 Medication Orders None recorded. Patient TargetsNo targets recorded. Patient InstructionsNo instructions recorded. Reason for Referral None Reported. Results Created Date Observation Date Name Description Value Unit Range Abnormal Flag Note LastModifiedBy Organization Detail LastModifiedTime 09/30/1909/30/2018 urina lysis , dipst ick Leukocytes Negati ve Not Available [facility] [address], [place], [address], 09/30/2018 14:55:21 09/30/19 19 09/30/2018 urina lysis , dipst ick Nitrite negati ve Not Available [facility] [address] [facility] [address], [place], [address], 09/30/2018 14:55:21 09/30/1909/30/2018 urina lysis , dipst ick Urobilinogen .2 Not Available [facility] [address] [facility] [address], [place], [address], 09/30/2018 14:55:21 09/30/1909/30/2018 urina lysis , dipst ick Protein Negati ve Not Available [address], [place], [address], 09/30/2018 14:55:21 09/30/1909/30/2018 urina lysis , dipst ick pH 5.0 Not Available [address], [place], [address], 09/30/2018 14:55:21 09/30/1909/30/2018 urina lysis , dipst ick Blood Non-He molyze d: Trace Not Available [address], [place], [address], 09/30/2018 14:55:21 09/30/1909/30/2018 urina lysis , dipst ick Specific [place] 1.030 Not Available [address], [place], [address], 09/30/2018 14:55:21 09/30/1909/30/2018 urina lysis , dipst ick Ketone Negati ve Not Available [address], [place], [address], 09/30/2018 14:55:21 09/30/1909/30/2018 urina lysis , dipst ick Bilirubin Negati ve Not Available [address], [place], [address], 09/30/2018 14:55:21 09/30/1909/30/2018 urina lysis , dipst ick Glucose Negati ve Not Available [facility] [address] [facility] [address], [place], [address], 09/30/2018 14:55:21 09/30/1909/30/2018 urina lysis , dipst ick Appearance Clear Not Available [facility] [address] [facility] [address], [place], [address], 09/30/2018 14:55:21 09/30/1909/30/2018 urina lysis , dipst ick Color Pale Yellow Not Available [address], [place], [address], 09/30/2018 14:55:21 10/10/1910/09/2018 MAMMO , scree tish, bilat eral No observ ation record ed. [address], [place], [address], 10/11/2018 05:44:19 Result Notes None recorded. Problems Name Problem SNOMED Code Status Onset Date Resolution Date Notes Provider Name and Address Organization Details Recorded Time Anxiety 27660529 Active 2018 Enid zavala [facility] 9 09:08:40 Hypertensi ve disorder 29261837 Active 2018 Enid zavala [facility] 9 09:08:55 Acid reflux 157477877 Active 2018 Jes Ferreira NP, [address] [place] [address], [address], [facility] 9 15:17:03 Problem Notes None recorded. Procedures Surgical History Date Name Laterality Status Provider Name and Address Organization Details Recorded Time 09/27/19 16 arthroscopy of knee completed Jes Ferreira NP, [address] [place], [address], [facility] 09/30/2018 09:57:31 Tubal Ligation completed Enid Kandi Angeles [facility] 09/30/2018 09:09:43 Imaging Results [...] in Arterial blood by Pulse oximetry Systolic And Diastolic Provider Name and Address Organization Details Last Updated DateTime 9 161.29 cm 30.7 kg/m2 88671.5 4 g 63 /min 98 % 98 % 130/80 mm[Hg] Enidamaris Shinshaylee [facility] 9 14:52:29 Social History Question Answer Notes LastModified by Organizat ion Details LastModified Time Tobacco Smoking Status Never Smoker Not Available [facility] 06/29/2020 03:36:24 What Was The Date Of Your Most Recent Tobacco Screening? 09/30/2018 [id number] Information not available 06/29/2020 Sex: Female Functional [...] Diagnosis SNOMED-CT Code Diagnosis ICD10 Code Diagnosis IMO Codes Diagnosis Note [id number] DO [facility] [address] [facility],[place] [address] 09/30/2018 14:41:11 09/30/2018 16:27:17 Adult health examination 001060041 Z00.01 Pt defers PAP Low back pain 345649763 M54.5 Acid reflux 204071379 K2 1.9 OTC omeprazole Hypertensive disorder 38 614011 I10 stable Anxiety 79855314 F41.9 discussed citalopram /prozac-pt to consider Vitamin D deficiency 347 05989 E55.9 Hyperglycemia 87767712 R 73.9 Screening procedure 2012 5006 Z13.9 Health Concerns Section Related Observation LastModified by Organization Detai ls LastModified Time None Recorded Concern Status LastModified by Organization Details LastModified Time None Recorded Advance Directives Directive None Recorded Payers Insurance Date Sequence Insurance Name Policy Number Policy Malin Covered Member ID Malin Member ID Guarantor Name 09/30/2018 1 [facility] [id number] Lois Santos [id number] Lois Santos Notes Date Note Type Note Provider Name and Address Organization Details Recorded Time 09/30/19 19 text/htm l Annual WellnessReported by PatientSocial/Behavioral HistoryFor diet and nutrition, patient reportshigh caloric intakeandhigh carbohydrate mealsbut reportsdiscussed diet improvement. For physical activity, patient reportsdoes not exercise on a regular basisanddeconditioned due to sedentary lifestylebut reportsgood physical condition. For fracture risk, patient reportsno history of fractures,no recent explained fracture,no sudden unexplained fractures, andno previous musculoskeletal injuries. For additional lifestyle factors, patient reportsno tobacco useanddrinks alcohol (mild-moderate).Mental Status:For depression risk, patient reportsfeels sad, empty, or tearful,loss of interest in activities,loss of energy, andfeelings of worthlessness or guiltbut reportsno significant changes in weight,no sleep disturbances or insomnia,no agitation,no thoughts of suicide,no history of depression, andno history of mood disorders.Functional AbilityFor hearing, patient reportsloss of hearing: in both ears(mild). For vision, patient reportsworse near(reading glasses help). 2 problems- 1) anxiety 2) back pain-worse if lying prone Jes Ferreira NP, [address] [facility], [place], [address], [facility] 09/30/2018 16:02:27 OBGyn Episode No OBEpisode recorded.
== END 2025-06-22 14:22 | disposition home or self-care (01) ==
LOC: HO.HSMS 13:20
PROVIDERS: PCP Physician Assistant Medical; Visit Provider Psychiatry & Neurology Neurology
DX: M54.50 Low back pain, unspecified (principal); G89.29 Other chronic pain; M54.2 Cervicalgia; R90.89 Other abnormal findings on diagnostic imaging of central nervous system; R20.0 Anesthesia of skin; R20.2 Paresthesia of skin
CPT/HCPCS: 99204